=== PATIENT | male | born 1930 | race Caucasian/White ===

== ENCOUNTER 2016-03-15 08:20 | Outpatient (CLI) | payer MEDICARE, MEDICAID ==
[~2016-03-15 08:20] MED LIST: ASPI-605 PO; CEFT1VIA IJ; DEXL60CA3 PO; DOXA1TAB2 PO; LEVO137T24 PO; LEVO25TA7 PO; LINA145C PO; LORA10TA7 PO; NEBI10TA2 PO; OLME40TA3 PO; ROSU20TA PO; [UNRECOGNIZED DRUG - CODE] IV
== END 2016-03-15 23:59 | disposition home health service (06) ==
LOC: WOU 08:20
PROVIDERS: ATTEND Podiatrist Foot & Ankle Surgery
DX: I83.213 Varicose veins of right lower extremity with both ulcer of ankle and inflammation (principal); L97.313 Non-pressure chronic ulcer of right ankle with necrosis of muscle; I83.893 Varicose veins of bilateral lower extremities with other complications; Z87.891 Personal history of nicotine dependence; I10 Essential (primary) hypertension; I70.90 Unspecified atherosclerosis; Z79.82 Long term (current) use of aspirin; Z79.899 Other long term (current) drug therapy
CPT/HCPCS: 11043; A6207; A6402; A6452

== ENCOUNTER 2016-03-22 11:09 | Outpatient (CLI) | payer MEDICARE, MEDICAID | END 2016-03-22 23:59 | disposition home health service (06) | LOC: WOU 11:09 | PROVIDERS: ATTEND Podiatrist Foot & Ankle Surgery | DX: I83.213 Varicose veins of right lower extremity with both ulcer of ankle and inflammation (principal); L97.313 Non-pressure chronic ulcer of right ankle with necrosis of muscle; I83.893 Varicose veins of bilateral lower extremities with other complications; Z87.891 Personal history of nicotine dependence | CPT/HCPCS: 11043; A6207; A6402; A6452 ==

== ENCOUNTER 2016-03-29 11:40 | Outpatient (CLI) | payer MEDICARE, MEDICAID | END 2016-03-29 23:59 | disposition home health service (06) | LOC: WOU 11:40 | PROVIDERS: ATTEND Podiatrist Foot & Ankle Surgery | DX: I83.213 Varicose veins of right lower extremity with both ulcer of ankle and inflammation (principal); L97.312 Non-pressure chronic ulcer of right ankle with fat layer exposed; I83.893 Varicose veins of bilateral lower extremities with other complications; Z87.891 Personal history of nicotine dependence; I10 Essential (primary) hypertension; Z79.899 Other long term (current) drug therapy; Z79.82 Long term (current) use of aspirin; K21.9 Gastro-esophageal reflux disease without esophagitis; N40.0 Benign prostatic hyperplasia without lower urinary tract symptoms | CPT/HCPCS: 11043; A6207; A6402 ×2; A6452; 11042 ==

== ENCOUNTER 2016-04-05 08:29 | Outpatient (CLI) | payer MEDICARE, MEDICAID | END 2016-04-05 23:59 | disposition home health service (06) | LOC: WOU 08:29 | PROVIDERS: ATTEND Podiatrist Foot & Ankle Surgery | DX: I83.213 Varicose veins of right lower extremity with both ulcer of ankle and inflammation (principal); L97.312 Non-pressure chronic ulcer of right ankle with fat layer exposed; T86.821 Skin graft (allograft) (autograft) failure; I83.893 Varicose veins of bilateral lower extremities with other complications; Z87.891 Personal history of nicotine dependence; I10 Essential (primary) hypertension; Z79.899 Other long term (current) drug therapy; Z79.82 Long term (current) use of aspirin; K21.9 Gastro-esophageal reflux disease without esophagitis; N40.0 Benign prostatic hyperplasia without lower urinary tract symptoms | CPT/HCPCS: 11042; A6207; A6402; A6452 ==

== ENCOUNTER → 2016-04-12 | Outpatient (CLI) | payer MEDICARE, MEDICAID | END | disposition home health service (06) | LOC: WOU 08:40 | PROVIDERS: ATTEND Podiatrist Foot & Ankle Surgery | DX: I83.213 Varicose veins of right lower extremity with both ulcer of ankle and inflammation (principal); I96 Gangrene, not elsewhere classified; L97.311 Non-pressure chronic ulcer of right ankle limited to breakdown of skin; I83.893 Varicose veins of bilateral lower extremities with other complications; Z88.8 Allergy status to other drugs, medicaments and biological substances | CPT/HCPCS: 11042; A6207 ×2; A6402; A6452 ==

== ENCOUNTER 2016-04-19 08:30 | Outpatient (CLI) | payer MEDICARE, MEDICAID | END 2016-04-19 23:59 | disposition home health service (06) | LOC: WOU 08:30 | PROVIDERS: ATTEND Podiatrist Foot & Ankle Surgery | DX: I83.213 Varicose veins of right lower extremity with both ulcer of ankle and inflammation (principal); L97.313 Non-pressure chronic ulcer of right ankle with necrosis of muscle; Z87.891 Personal history of nicotine dependence; I83.893 Varicose veins of bilateral lower extremities with other complications; T86.821 Skin graft (allograft) (autograft) failure | CPT/HCPCS: 11043; A6207; A6402; A6452 ==

== ENCOUNTER 2016-04-26 08:30 | Outpatient (CLI) | payer MEDICARE, MEDICAID | END 2016-04-26 23:59 | disposition home health service (06) | LOC: WOU 08:30 | PROVIDERS: ATTEND Podiatrist Foot & Ankle Surgery | DX: I83.213 Varicose veins of right lower extremity with both ulcer of ankle and inflammation (principal); T86.821 Skin graft (allograft) (autograft) failure; L97.311 Non-pressure chronic ulcer of right ankle limited to breakdown of skin; I83.893 Varicose veins of bilateral lower extremities with other complications; Z87.891 Personal history of nicotine dependence; I10 Essential (primary) hypertension | CPT/HCPCS: 11042; A6207; A6402; A6452 ==

== ENCOUNTER 2016-05-03 08:40 | Outpatient (CLI) | payer MEDICARE, MEDICAID | END 2016-05-03 23:59 | disposition home health service (06) | DX: I83.213 Varicose veins of right lower extremity with both ulcer of ankle and inflammation (principal); L97.311 Non-pressure chronic ulcer of right ankle limited to breakdown of skin; T86.821 Skin graft (allograft) (autograft) failure; I83.893 Varicose veins of bilateral lower extremities with other complications; Z87.891 Personal history of nicotine dependence; I10 Essential (primary) hypertension | CPT/HCPCS: 11042; A6207; A6402; A6452 ==

== ENCOUNTER 2016-05-10 08:30 | Outpatient (CLI) | payer MEDICARE, MEDICAID | END 2016-05-10 23:59 | disposition home health service (06) | LOC: WOU 08:30 | PROVIDERS: ATTEND Podiatrist Foot & Ankle Surgery | DX: I83.213 Varicose veins of right lower extremity with both ulcer of ankle and inflammation (principal); L97.311 Non-pressure chronic ulcer of right ankle limited to breakdown of skin; I83.893 Varicose veins of bilateral lower extremities with other complications; T81.31XD Disruption of external operation (surgical) wound, not elsewhere classified, subsequent encounter | CPT/HCPCS: 11042; A6207; A6402; A6452 ==

== ENCOUNTER 2016-05-17 08:30 | Outpatient (CLI) | payer MEDICARE, MEDICAID | END 2016-05-17 23:59 | disposition home health service (06) | LOC: WOU 08:30 | PROVIDERS: ATTEND Podiatrist Foot & Ankle Surgery | DX: I83.213 Varicose veins of right lower extremity with both ulcer of ankle and inflammation (principal); L97.311 Non-pressure chronic ulcer of right ankle limited to breakdown of skin; T81.31XD Disruption of external operation (surgical) wound, not elsewhere classified, subsequent encounter; T86.821 Skin graft (allograft) (autograft) failure; Z87.891 Personal history of nicotine dependence; I10 Essential (primary) hypertension | CPT/HCPCS: 11042; A6207; A6402; A6452 ==

== ENCOUNTER 2016-05-24 12:00 | Outpatient (CLI) | payer MEDICARE, MEDICAID | END 2016-05-24 23:59 | disposition home or self-care (01) | LOC: WOU 12:00 | PROVIDERS: ATTEND Podiatrist Foot & Ankle Surgery | DX: I83.213 Varicose veins of right lower extremity with both ulcer of ankle and inflammation (principal); L97.311 Non-pressure chronic ulcer of right ankle limited to breakdown of skin; T81.31XD Disruption of external operation (surgical) wound, not elsewhere classified, subsequent encounter; T86.821 Skin graft (allograft) (autograft) failure; Z87.891 Personal history of nicotine dependence; I10 Essential (primary) hypertension; I83.893 Varicose veins of bilateral lower extremities with other complications; Z88.8 Allergy status to other drugs, medicaments and biological substances | CPT/HCPCS: 11042; A6207; A6402; A6452 ==

== ENCOUNTER 2016-05-31 11:55 | Outpatient (CLI) | payer MEDICARE, MEDICAID | END 2016-05-31 23:59 | disposition home or self-care (01) | LOC: WOU 11:55 | PROVIDERS: ATTEND Podiatrist Foot & Ankle Surgery | DX: I83.213 Varicose veins of right lower extremity with both ulcer of ankle and inflammation (principal); L97.311 Non-pressure chronic ulcer of right ankle limited to breakdown of skin; Z87.891 Personal history of nicotine dependence; I83.893 Varicose veins of bilateral lower extremities with other complications; T86.821 Skin graft (allograft) (autograft) failure | CPT/HCPCS: 11042; A6207; A6402; A6452 ==

== ENCOUNTER 2016-06-07 08:12 | Outpatient (CLI) | payer MEDICARE, MEDICAID | END 2016-06-07 23:59 | disposition home or self-care (01) | LOC: WOU 08:12 | PROVIDERS: ATTEND Podiatrist Foot & Ankle Surgery | DX: I83.213 Varicose veins of right lower extremity with both ulcer of ankle and inflammation (principal); T81.31XD Disruption of external operation (surgical) wound, not elsewhere classified, subsequent encounter; T86.821 Skin graft (allograft) (autograft) failure; L97.311 Non-pressure chronic ulcer of right ankle limited to breakdown of skin; Z87.891 Personal history of nicotine dependence; I10 Essential (primary) hypertension; I49.9 Cardiac arrhythmia, unspecified; Z79.899 Other long term (current) drug therapy | CPT/HCPCS: 11042; A6207; A6402; A6452 ==

== ENCOUNTER 2016-06-14 12:50 | Outpatient (CLI) | payer MEDICARE, MEDICAID | END 2016-06-14 23:59 | disposition home or self-care (01) | LOC: WOU 12:50 | PROVIDERS: ATTEND Podiatrist Foot & Ankle Surgery | DX: I83.213 Varicose veins of right lower extremity with both ulcer of ankle and inflammation (principal); L97.311 Non-pressure chronic ulcer of right ankle limited to breakdown of skin; I83.893 Varicose veins of bilateral lower extremities with other complications; T86.821 Skin graft (allograft) (autograft) failure; T81.31XD Disruption of external operation (surgical) wound, not elsewhere classified, subsequent encounter | CPT/HCPCS: 15271; A6402; A6452; Q4133; A6207 ==

== ENCOUNTER 2016-06-21 12:37 | Outpatient (CLI) | payer MEDICARE, MEDICAID | END 2016-06-21 23:59 | disposition home or self-care (01) | LOC: WOU 12:37 | PROVIDERS: ATTEND Podiatrist Foot & Ankle Surgery | DX: I83.213 Varicose veins of right lower extremity with both ulcer of ankle and inflammation (principal); L97.311 Non-pressure chronic ulcer of right ankle limited to breakdown of skin; I83.893 Varicose veins of bilateral lower extremities with other complications; T86.821 Skin graft (allograft) (autograft) failure; T81.31XD Disruption of external operation (surgical) wound, not elsewhere classified, subsequent encounter; Z87.891 Personal history of nicotine dependence; I10 Essential (primary) hypertension | CPT/HCPCS: 15271; A6402; A6452; Q4133 ==

== ENCOUNTER 2016-06-28 12:47 | Outpatient (CLI) | payer MEDICARE, MEDICAID | END 2016-06-28 23:59 | disposition home or self-care (01) | LOC: WOU 12:47 | PROVIDERS: ATTEND Podiatrist Foot & Ankle Surgery | DX: I83.213 Varicose veins of right lower extremity with both ulcer of ankle and inflammation (principal); L97.311 Non-pressure chronic ulcer of right ankle limited to breakdown of skin; I83.893 Varicose veins of bilateral lower extremities with other complications; Z87.891 Personal history of nicotine dependence; I10 Essential (primary) hypertension; T81.31XD Disruption of external operation (surgical) wound, not elsewhere classified, subsequent encounter; T86.821 Skin graft (allograft) (autograft) failure | CPT/HCPCS: 15271; A6402; A6452; Q4133 ==

== ENCOUNTER 2016-07-05 12:14 | Outpatient (CLI) | payer MEDICARE, MEDICAID | END 2016-07-05 23:59 | disposition home or self-care (01) | LOC: WOU 12:14 | PROVIDERS: ATTEND Podiatrist Foot & Ankle Surgery | DX: I83.213 Varicose veins of right lower extremity with both ulcer of ankle and inflammation (principal); L97.311 Non-pressure chronic ulcer of right ankle limited to breakdown of skin; T86.821 Skin graft (allograft) (autograft) failure; T81.31XD Disruption of external operation (surgical) wound, not elsewhere classified, subsequent encounter; I83.893 Varicose veins of bilateral lower extremities with other complications; Z87.891 Personal history of nicotine dependence; Z79.82 Long term (current) use of aspirin; Z79.899 Other long term (current) drug therapy; I10 Essential (primary) hypertension; K21.9 Gastro-esophageal reflux disease without esophagitis; I49.9 Cardiac arrhythmia, unspecified; Z88.8 Allergy status to other drugs, medicaments and biological substances | CPT/HCPCS: 15271; A6402; A6452; Q4133 ==

== ENCOUNTER 2016-07-12 12:25 | Outpatient (CLI) | payer MEDICARE, MEDICAID | END 2016-07-12 23:59 | disposition home or self-care (01) | LOC: WOU 12:25 | PROVIDERS: ATTEND Podiatrist Foot & Ankle Surgery | DX: T81.31XD Disruption of external operation (surgical) wound, not elsewhere classified, subsequent encounter (principal); I83.893 Varicose veins of bilateral lower extremities with other complications; I83.013 Varicose veins of right lower extremity with ulcer of ankle; L97.311 Non-pressure chronic ulcer of right ankle limited to breakdown of skin; T86.821 Skin graft (allograft) (autograft) failure; Z87.891 Personal history of nicotine dependence; I10 Essential (primary) hypertension | CPT/HCPCS: A6197; A6402; A6452; G0463 ==

== ENCOUNTER → 2016-07-19 | Outpatient (CLI) | payer MEDICARE, MEDICAID | END | disposition home or self-care (01) | LOC: WOU 09:00 | PROVIDERS: ATTEND Podiatrist Foot & Ankle Surgery | DX: I83.213 Varicose veins of right lower extremity with both ulcer of ankle and inflammation (principal); L97.311 Non-pressure chronic ulcer of right ankle limited to breakdown of skin; T86.821 Skin graft (allograft) (autograft) failure; T81.31XD Disruption of external operation (surgical) wound, not elsewhere classified, subsequent encounter; I83.92 Asymptomatic varicose veins of left lower extremity; Z87.891 Personal history of nicotine dependence; I10 Essential (primary) hypertension | CPT/HCPCS: 11042; A6197; A6402; A6452 ==

== ENCOUNTER 2016-07-26 12:14 | Outpatient (CLI) | payer MEDICARE, MEDICAID | END 2016-07-26 23:59 | disposition home or self-care (01) | LOC: WOU 12:14 | PROVIDERS: ATTEND Podiatrist Foot & Ankle Surgery | DX: I83.213 Varicose veins of right lower extremity with both ulcer of ankle and inflammation (principal); L97.311 Non-pressure chronic ulcer of right ankle limited to breakdown of skin; T81.31XD Disruption of external operation (surgical) wound, not elsewhere classified, subsequent encounter; T86.821 Skin graft (allograft) (autograft) failure; Z87.891 Personal history of nicotine dependence; I10 Essential (primary) hypertension; Z79.82 Long term (current) use of aspirin; Z79.899 Other long term (current) drug therapy; I70.90 Unspecified atherosclerosis | CPT/HCPCS: 11042; A6402; A6452 ==

== ENCOUNTER 2016-08-02 12:45 | Outpatient (CLI) | payer MEDICARE, MEDICAID | END 2016-08-02 23:59 | disposition home or self-care (01) | LOC: WOU 12:45 | PROVIDERS: ATTEND Podiatrist Foot & Ankle Surgery | DX: I87.331 Chronic venous hypertension (idiopathic) with ulcer and inflammation of right lower extremity (principal); L97.311 Non-pressure chronic ulcer of right ankle limited to breakdown of skin; T86.821 Skin graft (allograft) (autograft) failure; T81.31XD Disruption of external operation (surgical) wound, not elsewhere classified, subsequent encounter; Z87.891 Personal history of nicotine dependence; I10 Essential (primary) hypertension; I49.9 Cardiac arrhythmia, unspecified; Z79.899 Other long term (current) drug therapy | CPT/HCPCS: 11042; A6207; A6402; A6452 ==

== ENCOUNTER 2016-08-09 12:45 | Outpatient (CLI) | payer MEDICARE, MEDICAID | END 2016-08-09 23:59 | disposition home or self-care (01) | LOC: WOU 12:45 | PROVIDERS: ATTEND Surgery | DX: I83.213 Varicose veins of right lower extremity with both ulcer of ankle and inflammation (principal); L97.311 Non-pressure chronic ulcer of right ankle limited to breakdown of skin; T81.31XD Disruption of external operation (surgical) wound, not elsewhere classified, subsequent encounter; T86.821 Skin graft (allograft) (autograft) failure; N40.0 Benign prostatic hyperplasia without lower urinary tract symptoms; I25.10 Atherosclerotic heart disease of native coronary artery without angina pectoris; I10 Essential (primary) hypertension; I49.9 Cardiac arrhythmia, unspecified; Z79.82 Long term (current) use of aspirin; Z79.899 Other long term (current) drug therapy; Z87.891 Personal history of nicotine dependence | CPT/HCPCS: 11042; A6207; A6402; A6452 ==

== ENCOUNTER 2016-08-16 12:30 | Outpatient (CLI) | payer MEDICARE, MEDICAID | END 2016-08-16 23:59 | disposition home health service (06) | LOC: WOU 12:30 | PROVIDERS: ATTEND Podiatrist Foot & Ankle Surgery | DX: I83.213 Varicose veins of right lower extremity with both ulcer of ankle and inflammation (principal); L97.311 Non-pressure chronic ulcer of right ankle limited to breakdown of skin; T86.821 Skin graft (allograft) (autograft) failure; Z93.1 Gastrostomy status; I10 Essential (primary) hypertension; Z79.82 Long term (current) use of aspirin; Z79.899 Other long term (current) drug therapy; Z87.891 Personal history of nicotine dependence | CPT/HCPCS: 11042; A6207; A6402; A6452 ==

== ENCOUNTER 2016-08-23 12:15 | Outpatient (CLI) | payer MEDICARE, MEDICAID | END 2016-08-23 23:59 | disposition home health service (06) | LOC: WOU 12:15 | PROVIDERS: ATTEND Podiatrist Foot & Ankle Surgery | DX: T86.821 Skin graft (allograft) (autograft) failure (principal); I83.213 Varicose veins of right lower extremity with both ulcer of ankle and inflammation; L97.311 Non-pressure chronic ulcer of right ankle limited to breakdown of skin; Z87.891 Personal history of nicotine dependence | CPT/HCPCS: 11042; A6207; A6402; A6452 ==

== ENCOUNTER 2016-08-30 10:20 | Outpatient (CLI) | payer MEDICARE, MEDICAID | END 2016-08-30 23:59 | disposition home health service (06) | LOC: WOU 10:20 | PROVIDERS: ATTEND Podiatrist Foot & Ankle Surgery | DX: I83.213 Varicose veins of right lower extremity with both ulcer of ankle and inflammation (principal); L97.321 Non-pressure chronic ulcer of left ankle limited to breakdown of skin; T81.31XD Disruption of external operation (surgical) wound, not elsewhere classified, subsequent encounter; T86.821 Skin graft (allograft) (autograft) failure; Z87.891 Personal history of nicotine dependence; Z88.8 Allergy status to other drugs, medicaments and biological substances; Z79.82 Long term (current) use of aspirin; Z79.899 Other long term (current) drug therapy; I10 Essential (primary) hypertension | CPT/HCPCS: 11042; A6207; A6402; A6452; G0463 ==

== ENCOUNTER 2016-09-06 12:24 | Outpatient (CLI) | payer MEDICARE, MEDICAID | END 2016-09-06 23:59 | disposition home health service (06) | LOC: WOU 12:24 | PROVIDERS: ATTEND Podiatrist Foot & Ankle Surgery | DX: I83.213 Varicose veins of right lower extremity with both ulcer of ankle and inflammation (principal); L97.311 Non-pressure chronic ulcer of right ankle limited to breakdown of skin; Z87.891 Personal history of nicotine dependence; Z79.82 Long term (current) use of aspirin; Z79.899 Other long term (current) drug therapy; T81.31XD Disruption of external operation (surgical) wound, not elsewhere classified, subsequent encounter; T86.828 Other complications of skin graft (allograft) (autograft); I10 Essential (primary) hypertension | CPT/HCPCS: 11042; A6207; A6402; A6452 ==

== ENCOUNTER 2016-09-13 12:20 | Outpatient (CLI) | payer MEDICARE, MEDICAID | END 2016-09-13 23:59 | disposition home health service (06) | LOC: WOU 12:20 | PROVIDERS: ATTEND Surgery | DX: I87.331 Chronic venous hypertension (idiopathic) with ulcer and inflammation of right lower extremity (principal); L97.311 Non-pressure chronic ulcer of right ankle limited to breakdown of skin; L97.811 Non-pressure chronic ulcer of other part of right lower leg limited to breakdown of skin; I10 Essential (primary) hypertension; Z87.891 Personal history of nicotine dependence | CPT/HCPCS: 11042; A6207; A6402; A6452 ==

== ENCOUNTER 2016-09-20 12:25 | Outpatient (CLI) | payer MEDICARE, MEDICAID | END 2016-09-20 23:59 | disposition home health service (06) | LOC: WOU 12:25 | PROVIDERS: ATTEND Podiatrist Foot & Ankle Surgery | DX: T86.821 Skin graft (allograft) (autograft) failure (principal); I83.213 Varicose veins of right lower extremity with both ulcer of ankle and inflammation; L97.311 Non-pressure chronic ulcer of right ankle limited to breakdown of skin; L97.811 Non-pressure chronic ulcer of other part of right lower leg limited to breakdown of skin; I10 Essential (primary) hypertension; Z87.891 Personal history of nicotine dependence; T81.31XD Disruption of external operation (surgical) wound, not elsewhere classified, subsequent encounter | CPT/HCPCS: A6207; A6253; A6402; A6452; G0463 ==

== ENCOUNTER 2016-10-04 12:30 | Outpatient (CLI) | payer MEDICARE, MEDICAID | END 2016-10-04 23:59 | disposition home health service (06) | LOC: WOU 12:30 | PROVIDERS: ATTEND Podiatrist Foot & Ankle Surgery | DX: T81.31XD Disruption of external operation (surgical) wound, not elsewhere classified, subsequent encounter (principal); T86.821 Skin graft (allograft) (autograft) failure; I83.213 Varicose veins of right lower extremity with both ulcer of ankle and inflammation; L97.311 Non-pressure chronic ulcer of right ankle limited to breakdown of skin; I25.2 Old myocardial infarction; I10 Essential (primary) hypertension; Z79.899 Other long term (current) drug therapy | CPT/HCPCS: 11042; 15271; A6207; A6402; A6452 ==

== ENCOUNTER 2016-10-11 09:28 | Outpatient (CLI) | payer MEDICARE, MEDICAID | END 2016-10-11 23:59 | disposition home health service (06) | LOC: WOU 09:28 | PROVIDERS: ATTEND Podiatrist Foot & Ankle Surgery | DX: I83.213 Varicose veins of right lower extremity with both ulcer of ankle and inflammation (principal); L97.311 Non-pressure chronic ulcer of right ankle limited to breakdown of skin; L97.811 Non-pressure chronic ulcer of other part of right lower leg limited to breakdown of skin; M79.661 Pain in right lower leg; T81.31XD Disruption of external operation (surgical) wound, not elsewhere classified, subsequent encounter; T86.821 Skin graft (allograft) (autograft) failure; I87.2 Venous insufficiency (chronic) (peripheral); Z87.891 Personal history of nicotine dependence | CPT/HCPCS: A6207; A6402; A6452; G0463 ==

== ENCOUNTER 2016-10-18 12:30 | Outpatient (CLI) | payer MEDICARE, MEDICAID | END 2016-10-18 23:59 | disposition home health service (06) | LOC: WOU 12:30 | PROVIDERS: ATTEND Podiatrist Foot & Ankle Surgery | DX: L97.311 Non-pressure chronic ulcer of right ankle limited to breakdown of skin (principal); L97.811 Non-pressure chronic ulcer of other part of right lower leg limited to breakdown of skin; T86.821 Skin graft (allograft) (autograft) failure; Z87.891 Personal history of nicotine dependence; I10 Essential (primary) hypertension; Z79.899 Other long term (current) drug therapy | CPT/HCPCS: 11042; A6207; A6402; A6452 ==

== ENCOUNTER 2016-10-25 11:15 | Outpatient (CLI) | payer MEDICARE, MEDICAID | END 2016-10-25 23:59 | disposition home health service (06) | LOC: WOU 11:15 | PROVIDERS: ATTEND Podiatrist Foot & Ankle Surgery | DX: T86.821 Skin graft (allograft) (autograft) failure (principal); T81.31XD Disruption of external operation (surgical) wound, not elsewhere classified, subsequent encounter; I83.218 Varicose veins of right lower extremity with both ulcer of other part of lower extremity and inflammation; L97.811 Non-pressure chronic ulcer of other part of right lower leg limited to breakdown of skin; L97.311 Non-pressure chronic ulcer of right ankle limited to breakdown of skin; I83.811 Varicose veins of right lower extremity with pain; Z87.891 Personal history of nicotine dependence; Z79.82 Long term (current) use of aspirin; Z79.899 Other long term (current) drug therapy; I10 Essential (primary) hypertension | CPT/HCPCS: A6207; A6402; A6452; G0463 ==

== ENCOUNTER 2016-11-01 09:25 | Outpatient (CLI) | payer MEDICARE, MEDICAID | END 2016-11-01 23:59 | disposition home health service (06) | LOC: WOU 09:25 | PROVIDERS: ATTEND Podiatrist Foot & Ankle Surgery | DX: I83.213 Varicose veins of right lower extremity with both ulcer of ankle and inflammation (principal); L97.311 Non-pressure chronic ulcer of right ankle limited to breakdown of skin; I83.218 Varicose veins of right lower extremity with both ulcer of other part of lower extremity and inflammation; L97.811 Non-pressure chronic ulcer of other part of right lower leg limited to breakdown of skin; T81.31XD Disruption of external operation (surgical) wound, not elsewhere classified, subsequent encounter; T86.821 Skin graft (allograft) (autograft) failure; M79.661 Pain in right lower leg | CPT/HCPCS: 15002; 15110; A6402; A6452; A6207 ==

== ENCOUNTER 2016-11-08 09:53 | Outpatient (CLI) | payer MEDICARE, MEDICAID | END 2016-11-08 23:59 | disposition home health service (06) | LOC: WOU 09:53 | PROVIDERS: ATTEND Podiatrist Foot & Ankle Surgery | DX: I83.213 Varicose veins of right lower extremity with both ulcer of ankle and inflammation (principal); T81.31XD Disruption of external operation (surgical) wound, not elsewhere classified, subsequent encounter; T86.821 Skin graft (allograft) (autograft) failure; M79.661 Pain in right lower leg; L97.311 Non-pressure chronic ulcer of right ankle limited to breakdown of skin; Z87.891 Personal history of nicotine dependence | CPT/HCPCS: A6253; A6402; A6452; G0463 ==

== ENCOUNTER 2016-11-15 10:37 | Outpatient (CLI) | payer MEDICARE, MEDICAID | END 2016-11-15 23:59 | disposition home health service (06) | LOC: WOU 10:37 | PROVIDERS: ATTEND Podiatrist Foot & Ankle Surgery | DX: I83.213 Varicose veins of right lower extremity with both ulcer of ankle and inflammation (principal); L97.311 Non-pressure chronic ulcer of right ankle limited to breakdown of skin; T81.31XD Disruption of external operation (surgical) wound, not elsewhere classified, subsequent encounter; M79.661 Pain in right lower leg; Z87.891 Personal history of nicotine dependence; I10 Essential (primary) hypertension; Z79.899 Other long term (current) drug therapy; Z79.82 Long term (current) use of aspirin | CPT/HCPCS: A6402; A6452; G0463 ==

== ENCOUNTER 2016-11-22 12:20 | Outpatient (CLI) | payer MEDICARE, MEDICAID | END 2016-11-22 23:59 | disposition home health service (06) | LOC: WOU 12:20 | PROVIDERS: ATTEND Podiatrist Foot & Ankle Surgery | DX: I83.213 Varicose veins of right lower extremity with both ulcer of ankle and inflammation (principal); L97.321 Non-pressure chronic ulcer of left ankle limited to breakdown of skin; T86.821 Skin graft (allograft) (autograft) failure; T81.31XD Disruption of external operation (surgical) wound, not elsewhere classified, subsequent encounter; M79.661 Pain in right lower leg; Z87.891 Personal history of nicotine dependence; I10 Essential (primary) hypertension | CPT/HCPCS: 11042; A6253; A6402; A6452 ==

== ENCOUNTER 2016-12-06 12:45 | Outpatient (CLI) | payer MEDICARE, MEDICAID | END 2016-12-06 23:59 | disposition home health service (06) | LOC: WOU 12:45 | PROVIDERS: ATTEND Podiatrist Foot & Ankle Surgery | DX: I83.213 Varicose veins of right lower extremity with both ulcer of ankle and inflammation (principal); L97.311 Non-pressure chronic ulcer of right ankle limited to breakdown of skin; T86.821 Skin graft (allograft) (autograft) failure; I83.218 Varicose veins of right lower extremity with both ulcer of other part of lower extremity and inflammation; L97.811 Non-pressure chronic ulcer of other part of right lower leg limited to breakdown of skin; T81.31XD Disruption of external operation (surgical) wound, not elsewhere classified, subsequent encounter; I10 Essential (primary) hypertension; Z88.8 Allergy status to other drugs, medicaments and biological substances | CPT/HCPCS: 11042; A6253; A6402; A6452 ==

== ENCOUNTER 2016-12-13 12:10 | Outpatient (CLI) | payer MEDICARE, MEDICAID | END 2016-12-13 23:59 | disposition home health service (06) | LOC: WOU 12:10 | PROVIDERS: ATTEND Podiatrist Foot & Ankle Surgery | DX: I83.213 Varicose veins of right lower extremity with both ulcer of ankle and inflammation (principal); L97.311 Non-pressure chronic ulcer of right ankle limited to breakdown of skin; T86.821 Skin graft (allograft) (autograft) failure; I83.218 Varicose veins of right lower extremity with both ulcer of other part of lower extremity and inflammation; L97.811 Non-pressure chronic ulcer of other part of right lower leg limited to breakdown of skin; T81.31XD Disruption of external operation (surgical) wound, not elsewhere classified, subsequent encounter; I10 Essential (primary) hypertension | CPT/HCPCS: 11042; 15271; A6402; A6452; Q4132 ×2 ==

== ENCOUNTER 2016-12-20 09:30 | Outpatient (CLI) | payer MEDICARE, MEDICAID | END 2016-12-20 23:59 | disposition home health service (06) | LOC: WOU 09:30 | PROVIDERS: ATTEND Podiatrist Foot & Ankle Surgery | DX: T81.31XA Disruption of external operation (surgical) wound, not elsewhere classified, initial encounter (principal); I83.213 Varicose veins of right lower extremity with both ulcer of ankle and inflammation; L97.311 Non-pressure chronic ulcer of right ankle limited to breakdown of skin; I83.218 Varicose veins of right lower extremity with both ulcer of other part of lower extremity and inflammation; L97.811 Non-pressure chronic ulcer of other part of right lower leg limited to breakdown of skin; I10 Essential (primary) hypertension; T86.821 Skin graft (allograft) (autograft) failure; M79.661 Pain in right lower leg; Z87.891 Personal history of nicotine dependence | CPT/HCPCS: 15271; A6402; A6452; Q4132 ==

== ENCOUNTER 2016-12-27 09:15 | Outpatient (CLI) | payer MEDICARE, MEDICAID | END 2016-12-27 23:59 | disposition home health service (06) | LOC: WOU 09:15 | PROVIDERS: ATTEND Podiatrist Foot & Ankle Surgery | DX: I83.213 Varicose veins of right lower extremity with both ulcer of ankle and inflammation (principal); M79.661 Pain in right lower leg; L97.311 Non-pressure chronic ulcer of right ankle limited to breakdown of skin; L97.811 Non-pressure chronic ulcer of other part of right lower leg limited to breakdown of skin; T86.821 Skin graft (allograft) (autograft) failure; T81.31XD Disruption of external operation (surgical) wound, not elsewhere classified, subsequent encounter; Z87.891 Personal history of nicotine dependence | CPT/HCPCS: 11042; 15271; A6402; A6452; Q4133 ==

== ENCOUNTER 2017-01-03 12:10 | Outpatient (CLI) | payer MEDICARE, MEDICAID | END 2017-01-03 23:59 | disposition home health service (06) | LOC: WOU 12:10 | PROVIDERS: ATTEND Podiatrist Foot & Ankle Surgery | DX: I83.213 Varicose veins of right lower extremity with both ulcer of ankle and inflammation (principal); L97.311 Non-pressure chronic ulcer of right ankle limited to breakdown of skin; L97.811 Non-pressure chronic ulcer of other part of right lower leg limited to breakdown of skin; T86.821 Skin graft (allograft) (autograft) failure; T81.31XD Disruption of external operation (surgical) wound, not elsewhere classified, subsequent encounter; Z87.891 Personal history of nicotine dependence | CPT/HCPCS: 11042; A6402; A6452 ==

== ENCOUNTER 2017-01-10 09:26 | Outpatient (CLI) | payer MEDICARE, MEDICAID | END 2017-01-10 23:59 | disposition home health service (06) | LOC: WOU 09:26 | PROVIDERS: ATTEND Podiatrist Foot & Ankle Surgery | DX: I83.213 Varicose veins of right lower extremity with both ulcer of ankle and inflammation (principal); L97.311 Non-pressure chronic ulcer of right ankle limited to breakdown of skin; L97.811 Non-pressure chronic ulcer of other part of right lower leg limited to breakdown of skin; T86.821 Skin graft (allograft) (autograft) failure; T81.31XD Disruption of external operation (surgical) wound, not elsewhere classified, subsequent encounter | CPT/HCPCS: 11042; A6402; A6452 ==

== ENCOUNTER 2017-01-17 12:25 | Outpatient (CLI) | payer MEDICARE, MEDICAID | END 2017-01-17 23:59 | disposition home or self-care (01) | LOC: WOU 12:25 | PROVIDERS: ATTEND Podiatrist Foot & Ankle Surgery | DX: I83.213 Varicose veins of right lower extremity with both ulcer of ankle and inflammation (principal); L97.318 Non-pressure chronic ulcer of right ankle with other specified severity; I83.218 Varicose veins of right lower extremity with both ulcer of other part of lower extremity and inflammation; L97.811 Non-pressure chronic ulcer of other part of right lower leg limited to breakdown of skin; T86.821 Skin graft (allograft) (autograft) failure; T81.31XD Disruption of external operation (surgical) wound, not elsewhere classified, subsequent encounter; Z87.891 Personal history of nicotine dependence | CPT/HCPCS: 11042; A6402; A6452 ==

== ENCOUNTER 2017-01-28 09:25 | Outpatient (CLI) | payer MEDICARE, MEDICAID | END 2017-01-28 23:59 | disposition home health service (06) | LOC: WOU 09:25 | PROVIDERS: ATTEND Podiatrist Foot & Ankle Surgery | DX: I83.213 Varicose veins of right lower extremity with both ulcer of ankle and inflammation (principal); L97.312 Non-pressure chronic ulcer of right ankle with fat layer exposed; L97.812 Non-pressure chronic ulcer of other part of right lower leg with fat layer exposed; I83.018 Varicose veins of right lower extremity with ulcer other part of lower leg; T86.821 Skin graft (allograft) (autograft) failure; T81.31XD Disruption of external operation (surgical) wound, not elsewhere classified, subsequent encounter; Z87.891 Personal history of nicotine dependence; I10 Essential (primary) hypertension | CPT/HCPCS: 11042; A6402; A6452 ==

== ENCOUNTER 2017-02-07 12:30 | Outpatient (CLI) | payer MEDICARE, MEDICAID | END 2017-02-07 23:59 | disposition home health service (06) | LOC: WOU 12:30 | PROVIDERS: ATTEND Podiatrist Foot & Ankle Surgery | DX: L97.812 Non-pressure chronic ulcer of other part of right lower leg with fat layer exposed (principal); I83.213 Varicose veins of right lower extremity with both ulcer of ankle and inflammation; L97.312 Non-pressure chronic ulcer of right ankle with fat layer exposed; T81.31XD Disruption of external operation (surgical) wound, not elsewhere classified, subsequent encounter; Z87.891 Personal history of nicotine dependence; Z79.899 Other long term (current) drug therapy; Z79.82 Long term (current) use of aspirin; I10 Essential (primary) hypertension | CPT/HCPCS: 11042; A6402 ×2; A6452 ==

== ENCOUNTER 2017-02-14 09:40 | Outpatient (CLI) | payer MEDICARE, MEDICAID | END 2017-02-14 23:59 | disposition home health service (06) | LOC: WOU 09:40 | PROVIDERS: ATTEND Podiatrist Foot & Ankle Surgery | DX: I87.311 Chronic venous hypertension (idiopathic) with ulcer of right lower extremity (principal); I83.213 Varicose veins of right lower extremity with both ulcer of ankle and inflammation; L97.312 Non-pressure chronic ulcer of right ankle with fat layer exposed; I83.218 Varicose veins of right lower extremity with both ulcer of other part of lower extremity and inflammation; L97.812 Non-pressure chronic ulcer of other part of right lower leg with fat layer exposed; F17.211 Nicotine dependence, cigarettes, in remission; T81.31XD Disruption of external operation (surgical) wound, not elsewhere classified, subsequent encounter; T86.821 Skin graft (allograft) (autograft) failure; M79.661 Pain in right lower leg | CPT/HCPCS: 11042; A6402; A6452 ==

== ENCOUNTER 2017-02-21 09:20 | Outpatient (CLI) | payer MEDICARE, MEDICAID | END 2017-02-21 23:59 | disposition home health service (06) | LOC: WOU 09:20 | PROVIDERS: ATTEND Podiatrist Foot & Ankle Surgery | DX: I83.213 Varicose veins of right lower extremity with both ulcer of ankle and inflammation (principal); L97.312 Non-pressure chronic ulcer of right ankle with fat layer exposed; L97.812 Non-pressure chronic ulcer of other part of right lower leg with fat layer exposed; T86.821 Skin graft (allograft) (autograft) failure; T81.31XD Disruption of external operation (surgical) wound, not elsewhere classified, subsequent encounter; Z87.891 Personal history of nicotine dependence; I10 Essential (primary) hypertension; Z79.899 Other long term (current) drug therapy | CPT/HCPCS: 11042; A6402 ×2; A6452 ==

== ENCOUNTER 2017-02-28 12:25 | Outpatient (CLI) | payer MEDICARE, MEDICAID ==
[~2017-02-28 12:25] MED LIST changes: +OLME40TA12 PO; -OLME40TA3 PO
== END 2017-02-28 23:59 | disposition home health service (06) ==
LOC: WOU 12:25
PROVIDERS: ATTEND Podiatrist Foot & Ankle Surgery
DX: I83.213 Varicose veins of right lower extremity with both ulcer of ankle and inflammation (principal); L97.312 Non-pressure chronic ulcer of right ankle with fat layer exposed; L97.812 Non-pressure chronic ulcer of other part of right lower leg with fat layer exposed; I82.513 Chronic embolism and thrombosis of femoral vein, bilateral; Z79.82 Long term (current) use of aspirin; T81.31XD Disruption of external operation (surgical) wound, not elsewhere classified, subsequent encounter
CPT/HCPCS: 11042; 93925; 93970; A6402; A6452

== ENCOUNTER 2017-03-07 09:30 | Outpatient (CLI) | payer MEDICARE, MEDICAID | END 2017-03-07 23:59 | disposition home health service (06) | LOC: WOU 09:30 | PROVIDERS: ATTEND Podiatrist Foot & Ankle Surgery | DX: I83.213 Varicose veins of right lower extremity with both ulcer of ankle and inflammation (principal); L97.312 Non-pressure chronic ulcer of right ankle with fat layer exposed; L97.812 Non-pressure chronic ulcer of other part of right lower leg with fat layer exposed; I82.5Z3 Chronic embolism and thrombosis of unspecified deep veins of distal lower extremity, bilateral; F17.211 Nicotine dependence, cigarettes, in remission; I10 Essential (primary) hypertension; T86.821 Skin graft (allograft) (autograft) failure; T81.31XD Disruption of external operation (surgical) wound, not elsewhere classified, subsequent encounter | CPT/HCPCS: 11042; A6402; A6452 ==

== ENCOUNTER 2017-03-14 12:10 | Outpatient (CLI) | payer MEDICARE, MEDICAID | END 2017-03-14 23:59 | disposition home health service (06) | LOC: WOU 12:10 | PROVIDERS: ATTEND Podiatrist Foot & Ankle Surgery | DX: I83.213 Varicose veins of right lower extremity with both ulcer of ankle and inflammation (principal); L97.312 Non-pressure chronic ulcer of right ankle with fat layer exposed; L97.212 Non-pressure chronic ulcer of right calf with fat layer exposed; I83.811 Varicose veins of right lower extremity with pain; T86.821 Skin graft (allograft) (autograft) failure; T81.31XD Disruption of external operation (surgical) wound, not elsewhere classified, subsequent encounter; Z87.891 Personal history of nicotine dependence; I10 Essential (primary) hypertension; Z79.82 Long term (current) use of aspirin; Z79.899 Other long term (current) drug therapy | CPT/HCPCS: 11042; A6402; A6452 ==

== ENCOUNTER 2017-03-28 10:00 | Outpatient (CLI) | payer MEDICARE, MEDICAID | END 2017-03-28 23:59 | disposition home health service (06) | LOC: WOU 10:00 | PROVIDERS: ATTEND Podiatrist Foot & Ankle Surgery | DX: I83.213 Varicose veins of right lower extremity with both ulcer of ankle and inflammation (principal); L97.312 Non-pressure chronic ulcer of right ankle with fat layer exposed; L97.812 Non-pressure chronic ulcer of other part of right lower leg with fat layer exposed; Z87.891 Personal history of nicotine dependence; T86.821 Skin graft (allograft) (autograft) failure; M79.661 Pain in right lower leg; I70.203 Unspecified atherosclerosis of native arteries of extremities, bilateral legs | CPT/HCPCS: 11042; A6402; A6452 ==

== ENCOUNTER → 2017-04-04 | Outpatient (CLI) | payer MEDICARE, MEDICAID | END | disposition home health service (06) | LOC: WOU 12:39 | PROVIDERS: ATTEND Podiatrist Foot & Ankle Surgery | DX: I83.213 Varicose veins of right lower extremity with both ulcer of ankle and inflammation (principal); L97.318 Non-pressure chronic ulcer of right ankle with other specified severity; I83.218 Varicose veins of right lower extremity with both ulcer of other part of lower extremity and inflammation; L97.811 Non-pressure chronic ulcer of other part of right lower leg limited to breakdown of skin; T81.31XD Disruption of external operation (surgical) wound, not elsewhere classified, subsequent encounter; T86.821 Skin graft (allograft) (autograft) failure; I10 Essential (primary) hypertension; Z87.891 Personal history of nicotine dependence; Z79.899 Other long term (current) drug therapy | CPT/HCPCS: 11042; A6402; A6452 ==

== ENCOUNTER 2017-04-11 09:39 | Outpatient (CLI) | payer MEDICARE, MEDICAID | END 2017-04-11 23:59 | disposition home health service (06) | LOC: WOU 09:39 | PROVIDERS: ATTEND Podiatrist Foot & Ankle Surgery | DX: I83.213 Varicose veins of right lower extremity with both ulcer of ankle and inflammation (principal); L97.312 Non-pressure chronic ulcer of right ankle with fat layer exposed; I83.218 Varicose veins of right lower extremity with both ulcer of other part of lower extremity and inflammation; L97.812 Non-pressure chronic ulcer of other part of right lower leg with fat layer exposed; T86.821 Skin graft (allograft) (autograft) failure; T81.31XA Disruption of external operation (surgical) wound, not elsewhere classified, initial encounter | CPT/HCPCS: 11042; A6402; A6452 ==

== ENCOUNTER → 2017-04-18 | Outpatient (CLI) | payer MEDICARE, MEDICAID | END | disposition home health service (06) | LOC: WOU 09:27 | PROVIDERS: ATTEND Podiatrist Foot & Ankle Surgery | DX: I83.213 Varicose veins of right lower extremity with both ulcer of ankle and inflammation (principal); L97.312 Non-pressure chronic ulcer of right ankle with fat layer exposed; Z87.891 Personal history of nicotine dependence; T81.31XA Disruption of external operation (surgical) wound, not elsewhere classified, initial encounter; T86.821 Skin graft (allograft) (autograft) failure; M79.661 Pain in right lower leg | CPT/HCPCS: 11042; A6402; A6452 ==

== ENCOUNTER 2017-04-25 12:33 | Outpatient (CLI) | payer MEDICARE, MEDICAID | END 2017-04-25 23:59 | disposition home health service (06) | LOC: WOU 12:33 | PROVIDERS: ATTEND Podiatrist Foot & Ankle Surgery | DX: I83.213 Varicose veins of right lower extremity with both ulcer of ankle and inflammation (principal); L97.312 Non-pressure chronic ulcer of right ankle with fat layer exposed; I83.218 Varicose veins of right lower extremity with both ulcer of other part of lower extremity and inflammation; L97.812 Non-pressure chronic ulcer of other part of right lower leg with fat layer exposed; T86.821 Skin graft (allograft) (autograft) failure; T81.31XA Disruption of external operation (surgical) wound, not elsewhere classified, initial encounter | CPT/HCPCS: 11042; A6402; A6452 ==

== ENCOUNTER 2017-04-30 13:00 | Outpatient (CLI) | payer MEDICARE, MEDICAID | END 2017-04-30 23:59 | disposition home health service (06) | LOC: VASLAB 13:00 | PROVIDERS: ATTEND Surgery Vascular Surgery | DX: I87.2 Venous insufficiency (chronic) (peripheral) (principal); Z86.718 Personal history of other venous thrombosis and embolism; Z79.82 Long term (current) use of aspirin; L97.312 Non-pressure chronic ulcer of right ankle with fat layer exposed; I87.8 Other specified disorders of veins | CPT/HCPCS: A6402; A6452; G0463 ==

== ENCOUNTER 2017-05-02 09:15 | Outpatient (CLI) | payer MEDICARE, MEDICAID | END 2017-05-02 23:59 | disposition home or self-care (01) | LOC: WOU 09:15 | PROVIDERS: ATTEND Podiatrist Foot & Ankle Surgery | DX: I83.213 Varicose veins of right lower extremity with both ulcer of ankle and inflammation (principal); L97.312 Non-pressure chronic ulcer of right ankle with fat layer exposed; I83.018 Varicose veins of right lower extremity with ulcer other part of lower leg; L97.812 Non-pressure chronic ulcer of other part of right lower leg with fat layer exposed; T81.31XD Disruption of external operation (surgical) wound, not elsewhere classified, subsequent encounter; T86.821 Skin graft (allograft) (autograft) failure; I82.503 Chronic embolism and thrombosis of unspecified deep veins of lower extremity, bilateral; Z79.82 Long term (current) use of aspirin; Z79.899 Other long term (current) drug therapy | CPT/HCPCS: 11042; A6402; A6452 ==

== ENCOUNTER 2017-05-09 09:20 | Outpatient (CLI) | payer MEDICARE, MEDICAID | END 2017-05-09 23:59 | disposition home health service (06) | LOC: WOU 09:20 | PROVIDERS: ATTEND Podiatrist Foot & Ankle Surgery | DX: I83.213 Varicose veins of right lower extremity with both ulcer of ankle and inflammation (principal); L97.312 Non-pressure chronic ulcer of right ankle with fat layer exposed; I83.218 Varicose veins of right lower extremity with both ulcer of other part of lower extremity and inflammation; L97.812 Non-pressure chronic ulcer of other part of right lower leg with fat layer exposed; T81.31XD Disruption of external operation (surgical) wound, not elsewhere classified, subsequent encounter; T86.821 Skin graft (allograft) (autograft) failure; M79.661 Pain in right lower leg; Z87.891 Personal history of nicotine dependence; Z79.82 Long term (current) use of aspirin; Z79.899 Other long term (current) drug therapy | CPT/HCPCS: 11042; A6402; A6452 ==

== ENCOUNTER 2017-05-16 08:20 | Outpatient (CLI) | payer MEDICARE, MEDICAID | END 2017-05-16 23:59 | disposition home health service (06) | LOC: WOU 08:20 | PROVIDERS: ATTEND Podiatrist Foot & Ankle Surgery | DX: I83.013 Varicose veins of right lower extremity with ulcer of ankle (principal); L97.312 Non-pressure chronic ulcer of right ankle with fat layer exposed; L97.812 Non-pressure chronic ulcer of other part of right lower leg with fat layer exposed; I82.503 Chronic embolism and thrombosis of unspecified deep veins of lower extremity, bilateral; I10 Essential (primary) hypertension; Z87.891 Personal history of nicotine dependence; Z79.82 Long term (current) use of aspirin; Z79.899 Other long term (current) drug therapy; T81.31XA Disruption of external operation (surgical) wound, not elsewhere classified, initial encounter; T86.821 Skin graft (allograft) (autograft) failure; I83.018 Varicose veins of right lower extremity with ulcer other part of lower leg | CPT/HCPCS: 11042; 15271; A6402; A6452 ==

== ENCOUNTER 2017-05-23 08:00 | Outpatient (CLI) | payer MEDICARE, MEDICAID | END 2017-05-23 23:59 | disposition home health service (06) | LOC: WOU 08:00 | PROVIDERS: ATTEND Podiatrist Foot & Ankle Surgery | DX: I83.013 Varicose veins of right lower extremity with ulcer of ankle (principal); L97.312 Non-pressure chronic ulcer of right ankle with fat layer exposed; L97.812 Non-pressure chronic ulcer of other part of right lower leg with fat layer exposed; T81.31XD Disruption of external operation (surgical) wound, not elsewhere classified, subsequent encounter; T86.821 Skin graft (allograft) (autograft) failure; M79.661 Pain in right lower leg; I83.018 Varicose veins of right lower extremity with ulcer other part of lower leg | CPT/HCPCS: 11042; 15271; A6402; A6452 ==

== ENCOUNTER 2017-05-30 08:30 | Outpatient (CLI) | payer MEDICARE, MEDICAID | END 2017-05-30 23:59 | disposition home or self-care (01) | LOC: WOU 08:30 | PROVIDERS: ATTEND Podiatrist Foot & Ankle Surgery | DX: I83.013 Varicose veins of right lower extremity with ulcer of ankle (principal); L97.312 Non-pressure chronic ulcer of right ankle with fat layer exposed; I83.018 Varicose veins of right lower extremity with ulcer other part of lower leg; L97.812 Non-pressure chronic ulcer of other part of right lower leg with fat layer exposed; Z87.891 Personal history of nicotine dependence; I10 Essential (primary) hypertension; Z79.82 Long term (current) use of aspirin; Z79.899 Other long term (current) drug therapy | CPT/HCPCS: 11042; 15271; A6402; A6452; Q4172 ==

== ENCOUNTER 2017-06-06 08:07 | Outpatient (CLI) | payer MEDICARE, MEDICAID | END 2017-06-06 23:59 | disposition home health service (06) | LOC: WOU 08:07 | PROVIDERS: ATTEND Podiatrist Foot & Ankle Surgery | DX: I83.213 Varicose veins of right lower extremity with both ulcer of ankle and inflammation (principal); I70.293 Other atherosclerosis of native arteries of extremities, bilateral legs; I82.503 Chronic embolism and thrombosis of unspecified deep veins of lower extremity, bilateral; T86.821 Skin graft (allograft) (autograft) failure; L97.312 Non-pressure chronic ulcer of right ankle with fat layer exposed; L97.812 Non-pressure chronic ulcer of other part of right lower leg with fat layer exposed; I87.2 Venous insufficiency (chronic) (peripheral); T81.31XD Disruption of external operation (surgical) wound, not elsewhere classified, subsequent encounter; Z79.82 Long term (current) use of aspirin; Z87.891 Personal history of nicotine dependence | CPT/HCPCS: 11042; 15271; A6402; A6452 ==

== ENCOUNTER 2017-06-13 08:58 | Outpatient (CLI) | payer MEDICARE, MEDICAID | END 2017-06-13 23:59 | disposition home health service (06) | LOC: WOU 08:58 | PROVIDERS: ATTEND Podiatrist Foot & Ankle Surgery | DX: I83.013 Varicose veins of right lower extremity with ulcer of ankle (principal); L97.312 Non-pressure chronic ulcer of right ankle with fat layer exposed; I83.018 Varicose veins of right lower extremity with ulcer other part of lower leg; L97.812 Non-pressure chronic ulcer of other part of right lower leg with fat layer exposed; T86.821 Skin graft (allograft) (autograft) failure; T81.31XD Disruption of external operation (surgical) wound, not elsewhere classified, subsequent encounter; Z87.891 Personal history of nicotine dependence; I10 Essential (primary) hypertension; I82.503 Chronic embolism and thrombosis of unspecified deep veins of lower extremity, bilateral; Z79.82 Long term (current) use of aspirin | CPT/HCPCS: 11042; 15271; A6253; A6402; A6452; Q4172 ==

== ENCOUNTER 2017-06-19 09:15 | Outpatient (CLI) | payer MEDICARE, MEDICAID | END 2017-06-19 23:59 | disposition home health service (06) | LOC: WOU 09:15 | PROVIDERS: ATTEND Podiatrist Foot & Ankle Surgery | DX: I83.213 Varicose veins of right lower extremity with both ulcer of ankle and inflammation (principal); L97.312 Non-pressure chronic ulcer of right ankle with fat layer exposed; L97.812 Non-pressure chronic ulcer of other part of right lower leg with fat layer exposed; Z87.891 Personal history of nicotine dependence; T81.31XD Disruption of external operation (surgical) wound, not elsewhere classified, subsequent encounter; T86.821 Skin graft (allograft) (autograft) failure; Z79.899 Other long term (current) drug therapy; Z79.82 Long term (current) use of aspirin | CPT/HCPCS: 11042; 15271; A6402; A6452 ==

== ENCOUNTER 2017-06-27 08:15 | Outpatient (CLI) | payer MEDICARE, MEDICAID | END 2017-06-27 23:59 | disposition home health service (06) | LOC: WOU 08:15 | PROVIDERS: ATTEND Podiatrist Foot & Ankle Surgery | DX: I83.213 Varicose veins of right lower extremity with both ulcer of ankle and inflammation (principal); L97.312 Non-pressure chronic ulcer of right ankle with fat layer exposed; L97.812 Non-pressure chronic ulcer of other part of right lower leg with fat layer exposed; Z87.891 Personal history of nicotine dependence; I70.203 Unspecified atherosclerosis of native arteries of extremities, bilateral legs; T86.821 Skin graft (allograft) (autograft) failure; T81.31XD Disruption of external operation (surgical) wound, not elsewhere classified, subsequent encounter | CPT/HCPCS: 11042; 15271; A6402; A6452 ==

== ENCOUNTER 2017-07-04 08:10 | Outpatient (CLI) | payer MEDICARE, MEDICAID | END 2017-07-04 23:59 | disposition home health service (06) | LOC: WOU 08:10 | PROVIDERS: ATTEND Podiatrist Foot & Ankle Surgery | DX: I87.311 Chronic venous hypertension (idiopathic) with ulcer of right lower extremity (principal); L97.812 Non-pressure chronic ulcer of other part of right lower leg with fat layer exposed; L97.312 Non-pressure chronic ulcer of right ankle with fat layer exposed; T86.821 Skin graft (allograft) (autograft) failure; T81.31XD Disruption of external operation (surgical) wound, not elsewhere classified, subsequent encounter; I10 Essential (primary) hypertension; Z87.891 Personal history of nicotine dependence; Z88.8 Allergy status to other drugs, medicaments and biological substances; Z91.09 Other allergy status, other than to drugs and biological substances | CPT/HCPCS: 11042; 15271; A6402; A6452; J7040 ==

== ENCOUNTER 2017-07-11 08:05 | Outpatient (CLI) | payer MEDICARE, MEDICAID | END 2017-07-11 23:59 | disposition home health service (06) | LOC: WOU 08:05 | PROVIDERS: ATTEND Podiatrist Foot & Ankle Surgery | DX: I87.311 Chronic venous hypertension (idiopathic) with ulcer of right lower extremity (principal); L97.812 Non-pressure chronic ulcer of other part of right lower leg with fat layer exposed; L97.312 Non-pressure chronic ulcer of right ankle with fat layer exposed; M79.661 Pain in right lower leg; I10 Essential (primary) hypertension; Z87.891 Personal history of nicotine dependence; Z88.8 Allergy status to other drugs, medicaments and biological substances; Z91.09 Other allergy status, other than to drugs and biological substances | CPT/HCPCS: 11042; 15271; A6402; A6452 ==

== ENCOUNTER 2017-07-18 08:30 | Outpatient (CLI) | payer MEDICARE, MEDICAID | END 2017-07-18 23:59 | disposition home health service (06) | LOC: WOU 08:30 | PROVIDERS: ATTEND Podiatrist Foot & Ankle Surgery | DX: I87.311 Chronic venous hypertension (idiopathic) with ulcer of right lower extremity (principal); L97.812 Non-pressure chronic ulcer of other part of right lower leg with fat layer exposed; L97.312 Non-pressure chronic ulcer of right ankle with fat layer exposed; T86.821 Skin graft (allograft) (autograft) failure; I10 Essential (primary) hypertension; Z87.891 Personal history of nicotine dependence; Z88.8 Allergy status to other drugs, medicaments and biological substances; Z91.09 Other allergy status, other than to drugs and biological substances | CPT/HCPCS: 11042; A6402; A6452 ==

== ENCOUNTER 2017-07-25 08:00 | Outpatient (CLI) | payer MEDICARE, MEDICAID | END 2017-07-25 23:59 | disposition home health service (06) | LOC: WOU 08:00 | PROVIDERS: ATTEND Podiatrist Foot & Ankle Surgery | DX: I83.213 Varicose veins of right lower extremity with both ulcer of ankle and inflammation (principal); L97.312 Non-pressure chronic ulcer of right ankle with fat layer exposed; L97.812 Non-pressure chronic ulcer of other part of right lower leg with fat layer exposed; T81.31XD Disruption of external operation (surgical) wound, not elsewhere classified, subsequent encounter; T86.821 Skin graft (allograft) (autograft) failure; M79.661 Pain in right lower leg; I10 Essential (primary) hypertension; Z87.891 Personal history of nicotine dependence | CPT/HCPCS: 11042; A6402; A6452 ==

== ENCOUNTER 2017-08-01 08:15 | Outpatient (CLI) | payer MEDICARE, MEDICAID | END 2017-08-01 23:59 | disposition home health service (06) | LOC: WOU 08:15 | PROVIDERS: ATTEND Podiatrist Foot & Ankle Surgery | DX: I83.213 Varicose veins of right lower extremity with both ulcer of ankle and inflammation (principal); L97.312 Non-pressure chronic ulcer of right ankle with fat layer exposed; L97.812 Non-pressure chronic ulcer of other part of right lower leg with fat layer exposed; Z87.891 Personal history of nicotine dependence; T86.821 Skin graft (allograft) (autograft) failure; M79.661 Pain in right lower leg; T81.31XD Disruption of external operation (surgical) wound, not elsewhere classified, subsequent encounter | CPT/HCPCS: 11042; A6402; A6452 ==

== ENCOUNTER 2017-08-08 08:10 | Outpatient (CLI) | payer MEDICARE, MEDICAID | END 2017-08-08 23:59 | disposition home health service (06) | LOC: WOU 08:10 | PROVIDERS: ATTEND Podiatrist Foot & Ankle Surgery | DX: I83.213 Varicose veins of right lower extremity with both ulcer of ankle and inflammation (principal); L97.312 Non-pressure chronic ulcer of right ankle with fat layer exposed; L97.812 Non-pressure chronic ulcer of other part of right lower leg with fat layer exposed; T81.31XD Disruption of external operation (surgical) wound, not elsewhere classified, subsequent encounter; T86.821 Skin graft (allograft) (autograft) failure; Z87.891 Personal history of nicotine dependence; I10 Essential (primary) hypertension; Z79.82 Long term (current) use of aspirin; Z79.899 Other long term (current) drug therapy; K21.9 Gastro-esophageal reflux disease without esophagitis | CPT/HCPCS: 11042; A6402; A6452 ==

== ENCOUNTER 2017-08-15 08:10 | Outpatient (CLI) | payer MEDICARE, MEDICAID | END 2017-08-15 23:59 | disposition home health service (06) | LOC: WOU 08:10 | PROVIDERS: ATTEND Podiatrist Foot & Ankle Surgery | DX: I83.213 Varicose veins of right lower extremity with both ulcer of ankle and inflammation (principal); L97.312 Non-pressure chronic ulcer of right ankle with fat layer exposed; L97.812 Non-pressure chronic ulcer of other part of right lower leg with fat layer exposed; T81.31XD Disruption of external operation (surgical) wound, not elsewhere classified, subsequent encounter; Z87.891 Personal history of nicotine dependence; I10 Essential (primary) hypertension | CPT/HCPCS: 11042; A6402; A6452 ==

== ENCOUNTER 2017-08-22 08:00 | Outpatient (CLI) | payer MEDICARE, MEDICAID | END 2017-08-22 23:59 | disposition home health service (06) | LOC: WOU 08:00 | PROVIDERS: ATTEND Podiatrist Foot & Ankle Surgery | DX: I83.218 Varicose veins of right lower extremity with both ulcer of other part of lower extremity and inflammation (principal); L97.812 Non-pressure chronic ulcer of other part of right lower leg with fat layer exposed; T86.821 Skin graft (allograft) (autograft) failure; T81.31XD Disruption of external operation (surgical) wound, not elsewhere classified, subsequent encounter; Z87.891 Personal history of nicotine dependence; I83.811 Varicose veins of right lower extremity with pain; N40.0 Benign prostatic hyperplasia without lower urinary tract symptoms; I10 Essential (primary) hypertension; I82.503 Chronic embolism and thrombosis of unspecified deep veins of lower extremity, bilateral; Z79.82 Long term (current) use of aspirin; Z79.899 Other long term (current) drug therapy | CPT/HCPCS: 11042; A6402; A6452 ==

== ENCOUNTER 2017-08-29 08:00 | Outpatient (CLI) | payer MEDICARE, MEDICAID | END 2017-08-29 23:59 | disposition home health service (06) | LOC: WOU 08:00 | PROVIDERS: ATTEND Podiatrist Foot & Ankle Surgery | DX: I83.018 Varicose veins of right lower extremity with ulcer other part of lower leg (principal); L97.812 Non-pressure chronic ulcer of other part of right lower leg with fat layer exposed; T81.31XD Disruption of external operation (surgical) wound, not elsewhere classified, subsequent encounter; T86.821 Skin graft (allograft) (autograft) failure; Z87.891 Personal history of nicotine dependence; I10 Essential (primary) hypertension | CPT/HCPCS: 11042; A6402; A6452; Z7610 ==

== ENCOUNTER 2017-09-05 08:00 | Outpatient (CLI) | payer MEDICARE, MEDICAID | END 2017-09-05 23:59 | disposition home health service (06) | LOC: WOU 08:00 | PROVIDERS: ATTEND Podiatrist Foot & Ankle Surgery | DX: I83.213 Varicose veins of right lower extremity with both ulcer of ankle and inflammation (principal); L97.812 Non-pressure chronic ulcer of other part of right lower leg with fat layer exposed; T81.31XD Disruption of external operation (surgical) wound, not elsewhere classified, subsequent encounter; T86.821 Skin graft (allograft) (autograft) failure; I83.811 Varicose veins of right lower extremity with pain; I10 Essential (primary) hypertension; Z87.891 Personal history of nicotine dependence; I82.509 Chronic embolism and thrombosis of unspecified deep veins of unspecified lower extremity; Z79.82 Long term (current) use of aspirin | CPT/HCPCS: 11042; A6402; A6452; Z7610 ==

== ENCOUNTER → 2017-09-12 | Outpatient (CLI) | payer MEDICARE, MEDICAID | END | disposition home health service (06) | LOC: WOU 08:04 | PROVIDERS: ATTEND Podiatrist Foot & Ankle Surgery | DX: I83.213 Varicose veins of right lower extremity with both ulcer of ankle and inflammation (principal); L97.812 Non-pressure chronic ulcer of other part of right lower leg with fat layer exposed; I10 Essential (primary) hypertension; Z87.891 Personal history of nicotine dependence; Z79.82 Long term (current) use of aspirin; Z79.899 Other long term (current) drug therapy; T81.31XD Disruption of external operation (surgical) wound, not elsewhere classified, subsequent encounter; T86.821 Skin graft (allograft) (autograft) failure; M79.661 Pain in right lower leg | CPT/HCPCS: 11042; A6402; A6452; Z7610 ==

== ENCOUNTER 2017-09-26 09:58 | Outpatient (CLI) | payer MEDICARE, MEDICAID | END 2017-09-26 23:59 | disposition home health service (06) | LOC: WOU 09:58 | PROVIDERS: ATTEND Podiatrist Foot & Ankle Surgery | DX: I83.213 Varicose veins of right lower extremity with both ulcer of ankle and inflammation (principal); L97.312 Non-pressure chronic ulcer of right ankle with fat layer exposed; T86.821 Skin graft (allograft) (autograft) failure; T81.31XD Disruption of external operation (surgical) wound, not elsewhere classified, subsequent encounter; I82.503 Chronic embolism and thrombosis of unspecified deep veins of lower extremity, bilateral; Z79.82 Long term (current) use of aspirin; Z87.891 Personal history of nicotine dependence; I10 Essential (primary) hypertension | CPT/HCPCS: 11042; A6402; A6452; Z7610 ==

== ENCOUNTER 2017-10-03 09:48 | Outpatient (CLI) | payer MEDICARE, MEDICAID | END 2017-10-03 23:59 | disposition home health service (06) | LOC: WOU 09:48 | PROVIDERS: ATTEND Podiatrist Foot & Ankle Surgery | DX: I83.213 Varicose veins of right lower extremity with both ulcer of ankle and inflammation (principal); L97.312 Non-pressure chronic ulcer of right ankle with fat layer exposed; T86.821 Skin graft (allograft) (autograft) failure; T81.31XD Disruption of external operation (surgical) wound, not elsewhere classified, subsequent encounter; Z87.891 Personal history of nicotine dependence; I82.503 Chronic embolism and thrombosis of unspecified deep veins of lower extremity, bilateral; I10 Essential (primary) hypertension; Z79.82 Long term (current) use of aspirin; Z79.899 Other long term (current) drug therapy | CPT/HCPCS: 11042; A6402; A6452; Z7610 ==

== ENCOUNTER 2017-10-10 05:19 | Inpatient (IN) | payer MEDICARE, MEDICAID ==
[~2017-10-10] VITALS: Ht 175.3 cm; Wt 95.3 kg
--- NOTE | 2017-10-10 05:45 | NUR ---
MS RN NOTES RECEIVED PT FOR DAY SURGERY, PT IS AMBULATORY, A/O X 4, VERBALLY RESPONSIVE. NO DISTRESS, NO SOB NOTED. RESPIRATION IS EVEN AND UNLABORED. NO C/O PAIN OR DISCOMFORT AT THIS TIME. INSERTED IV ON RAC G # 20 X 1 ATTEMPT, WITH GOOD VENOUS RETURN, PT GAMA WELL. PT HERE FOR RLA SURGERY BY DR. JUNG. RLE WITH INTACT AND CLEAN DRESSING, PT REFUSED DRESSING TO BE REMOVED FOR PICTURE X 3, RISK AND BENEFITS EXPLAINED, KWAME RN AT BEDSIDE. ALL NEEDS ATTENDED AND MET. KEPT COMFORTABLE. CALL LIGHT WITHIN REACH. WILL ENDORSE TO NEXT SHIFT ACCORDINGLY FOR DOMINIQUE.
[2017-10-10 06:39] VITALS: BP 138/72
[2017-10-10 06:41] VITALS: BP 138/72
[2017-10-10] MEDS ORDERED: LIDOCAINE HCL/PF 1% 30 ML SDV ONE (06:50)
[2017-10-10] MEDS ORDERED: ANESTHESIA TRAY IN PYXIS 1 EA TRAY MC ONE (06:50)
[2017-10-10] MEDS ORDERED: BUPIVACAINE MPF 0.75% 30 ML VIAL ONE (06:51)
[2017-10-10] MEDS ORDERED: MINERAL OIL 10 ML VIAL MC ONE (07:05)
--- NOTE | 2017-10-10 07:17 | NUR ---
MS RN OPENING NOTES RECEIVED PATIENT IN BED IN NO ACUTE SIGNS OF DISTRESS. A/O X 4, VERBALLY RESPONSIVE, NO C/O PAIN OR DISCOMFORTS VOICED. ON ROOM AIR, RESPIRATION IS EVEN AND UNLABORED. IV ACCESS ON RAC G # 20 INTACT AND PATENT, FLUSHES WELL. RLE DRESSINGS INTACT AND CLEAN. PATIENT JUST LEFT VIA HIS BED FOR RLA SURGERY BY DR. JUNG TRANSPORTED BY SURGERY STAFF.
[2017-10-10] MEDS ORDERED: LIDOCAINE 1%-EPI 1:100,000 20 ML VIAL ONE (07:30)
[2017-10-10 09:18] VITALS: BP 155/73
[2017-10-10 09:20] VITALS: BP 155/73
--- NOTE | 2017-10-10 09:24 | NUR ---
RN NOTES S/P SURGERY PATIENT RETURN FROM SURGERY AWAKE, ALERT AND RESPONSIVE S/P RLE SPLIT THICKNESS SKIN GRAFT WITH WOUND VAC APPLICATION BY DR. JUNG. PT WITH NO C/O PAIN VOICED AT THIS TIME. DRESSING ON RLE CLEAN, DRY AND INTACT WITH WOUND VAC AT 125MMHG CONTINUOUS, NO DRAINAGE NOTED AT THE COLLECTING CANISTER. ON ROOM AIR, BREATHING EVEN WITH SP02 OF 97%. V/S TAKEN; BP 155/73. P 70, R 18, T 97.7F. SAFETY MEASURES KEPT IN PLACE. BED IN LOW/LOCKED POSITION WITH SR UP X2. CALL LIGHT WITHIN REACH. DR JUNG WITH ORDER TO DISCHARGE PT HOME WHEN STABLE PER PROTOCOL. WILL CONTINUE TO MONITOR.
--- NOTE | 2017-10-10 09:27 | NUR ---
RN NOTES SWABBED RIGHT NARE FOR MRSA TEST.
[2017-10-10] MEDS ORDERED: HYDROCODONE/APAP 5/325MG 1 EACH TABLET PO PRN (09:30)
[2017-10-10 09:35] VITALS: BP 150/74
--- NOTE | 2017-10-10 10:03 | NUR ---
RN NOTES CALLED AND SPOKE TO DALLIN HALL AND SAID THAT IF DR LORD ORDER PT TO BE DISCHARGED THEN IT'S OK TO DISCHARGE PT WHEN STABLE.
--- NOTE | 2017-10-10 11:36 | NUR ---
RN DISCHARGED NOTES PATIENT DISCHARGED HOME IN STABLE CONDITION. A/O X4, SAME VERBALLY RESPONSIVE WITH NO C/O PAIN OR DISCOMFORTS VOICED. PT S/P SPLIT THICKNESS SKIN GRAFT WITH WOUND VAC APPLICATION THIS MORNING BY DR JUNG. PT WITH STABLE V/S AND AMBULATORY. DRESSING TO RLE C/D /I WITH WOUND VAC @ 125MMHG IN PLACE AND FUNCTIONING, NO DRAINAGE NOTED TO COLLECTING CANISTER. PT VERBALIZED THAT HE KNOWS HOW TO OPERATE WOUND VAC HE HAD IT BEFORE. V/S TAKEN AND RECORDED. ALL BELONGINGS ACCOUNTED FOR AND SIGNED FORM. EXIT CARE/HEALTH TEACHINGS GIVEN AND VERBALIZED UNDERSTANDING. PATIENT LEFT UNIT VIA WHEELCHAIR AT 1130 ACCOMPANIED BY RIA ORELLANA TO WAITING MEDICAL TAXI IN FRONT OF THE LOBBY. ONE BIG BOX OF WOUND VAC SUPPLIES GIVEN TO PT. DR JUNG AND DALLIN HALL AWARE OF DISCHARGE.
== END 2017-10-10 11:30 | disposition home or self-care (01) | DRG 264 ==
LOC: DS 05:19 → MEDSG2 05:52
PROVIDERS: ADMIT Podiatrist Foot & Ankle Surgery; ATTEND Podiatrist Foot & Ankle Surgery
PROC: 0HBHXZZ Excision of Right Upper Leg Skin, External Approach (ICD-10-PCS; 2017-10-10)
PROC: 0HRKX74 Replacement of Right Lower Leg Skin with Autologous Tissue Substitute, Partial Thickness, External Approach (ICD-10-PCS; principal; 2017-10-10 07:30)
DX: I87.2 Venous insufficiency (chronic) (peripheral) (principal)
CPT/HCPCS: 82962-TC; 87081-TC; J3490; Z7610

== ENCOUNTER 2017-10-17 08:00 | Outpatient (CLI) | payer MEDICARE, MEDICAID | END 2017-10-17 23:59 | disposition home health service (06) | LOC: WOU 08:00 | PROVIDERS: ATTEND Podiatrist Foot & Ankle Surgery | DX: T86.821 Skin graft (allograft) (autograft) failure (principal); I83.213 Varicose veins of right lower extremity with both ulcer of ankle and inflammation; L97.318 Non-pressure chronic ulcer of right ankle with other specified severity; M79.661 Pain in right lower leg; Z87.891 Personal history of nicotine dependence; I82.503 Chronic embolism and thrombosis of unspecified deep veins of lower extremity, bilateral; I10 Essential (primary) hypertension; Z79.82 Long term (current) use of aspirin; Z79.899 Other long term (current) drug therapy | CPT/HCPCS: A6402 ×2; A6452; G0463; Z7610 ==

== ENCOUNTER 2017-10-21 09:30 | Outpatient (CLI) | payer MEDICARE, MEDICAID | END 2017-10-21 23:59 | disposition home health service (06) | LOC: WOU 09:30 | PROVIDERS: ATTEND Podiatrist Foot & Ankle Surgery | DX: T81.89XD Other complications of procedures, not elsewhere classified, subsequent encounter (principal); I87.2 Venous insufficiency (chronic) (peripheral); M79.661 Pain in right lower leg; I10 Essential (primary) hypertension; Z87.891 Personal history of nicotine dependence; Z79.82 Long term (current) use of aspirin; Z79.899 Other long term (current) drug therapy | CPT/HCPCS: A6253; A6402 ×2; A6452; G0463; Z7610 ==

== ENCOUNTER 2017-10-24 09:35 | Outpatient (CLI) | payer MEDICARE, MEDICAID | END 2017-10-24 23:59 | disposition home health service (06) | LOC: WOU 09:35 | PROVIDERS: ATTEND Podiatrist Foot & Ankle Surgery | DX: Z48.817 Encounter for surgical aftercare following surgery on the skin and subcutaneous tissue (principal); I83.213 Varicose veins of right lower extremity with both ulcer of ankle and inflammation; L97.319 Non-pressure chronic ulcer of right ankle with unspecified severity; Z87.891 Personal history of nicotine dependence; I82.503 Chronic embolism and thrombosis of unspecified deep veins of lower extremity, bilateral | CPT/HCPCS: A6253; A6402; A6452; G0463; Z7610 ==

== ENCOUNTER 2017-10-31 09:34 | Outpatient (CLI) | payer MEDICARE, MEDICAID | END 2017-10-31 23:59 | disposition home health service (06) | LOC: WOU 09:34 | PROVIDERS: ATTEND Podiatrist Foot & Ankle Surgery | DX: T81.31XD Disruption of external operation (surgical) wound, not elsewhere classified, subsequent encounter (principal); L97.818 Non-pressure chronic ulcer of other part of right lower leg with other specified severity; Z87.891 Personal history of nicotine dependence; I10 Essential (primary) hypertension; I83.213 Varicose veins of right lower extremity with both ulcer of ankle and inflammation; I82.503 Chronic embolism and thrombosis of unspecified deep veins of lower extremity, bilateral; Z79.82 Long term (current) use of aspirin; Z79.899 Other long term (current) drug therapy | CPT/HCPCS: A6253; A6402; A6452; G0463; Z7610 ==

== ENCOUNTER 2017-11-06 08:40 | Outpatient (CLI) | payer MEDICARE, MEDICAID | END 2017-11-06 23:59 | disposition home health service (06) | LOC: WOU 08:40 | PROVIDERS: ATTEND Specialist | DX: T81.31XA Disruption of external operation (surgical) wound, not elsewhere classified, initial encounter (principal); I83.213 Varicose veins of right lower extremity with both ulcer of ankle and inflammation; L97.918 Non-pressure chronic ulcer of unspecified part of right lower leg with other specified severity; Z87.891 Personal history of nicotine dependence; I10 Essential (primary) hypertension; I82.503 Chronic embolism and thrombosis of unspecified deep veins of lower extremity, bilateral; Z79.82 Long term (current) use of aspirin; Z79.899 Other long term (current) drug therapy | CPT/HCPCS: 87070-TC; 87186-TC; A6253; A6402; A6452; G0463; Z7610 ==

== ENCOUNTER 2017-11-07 11:30 | Outpatient (CLI) | payer MEDICARE, MEDICAID | END 2017-11-07 23:59 | disposition home health service (06) | LOC: WOU 11:30 | PROVIDERS: ATTEND Podiatrist Foot & Ankle Surgery | DX: T81.31XD Disruption of external operation (surgical) wound, not elsewhere classified, subsequent encounter (principal); I83.018 Varicose veins of right lower extremity with ulcer other part of lower leg; L97.818 Non-pressure chronic ulcer of other part of right lower leg with other specified severity; M79.661 Pain in right lower leg; Z87.891 Personal history of nicotine dependence; I82.503 Chronic embolism and thrombosis of unspecified deep veins of lower extremity, bilateral; Z79.82 Long term (current) use of aspirin; Z79.899 Other long term (current) drug therapy | CPT/HCPCS: A6253; A6402; A6452; G0463; Z7610 ==

== ENCOUNTER 2017-11-14 10:55 | Outpatient (CLI) | payer MEDICARE, MEDICAID | END 2017-11-14 23:59 | disposition home health service (06) | LOC: WOU 10:55 | PROVIDERS: ATTEND Podiatrist Foot & Ankle Surgery | DX: T86.828 Other complications of skin graft (allograft) (autograft) (principal); I83.213 Varicose veins of right lower extremity with both ulcer of ankle and inflammation; L97.312 Non-pressure chronic ulcer of right ankle with fat layer exposed; T81.31XD Disruption of external operation (surgical) wound, not elsewhere classified, subsequent encounter; M79.661 Pain in right lower leg; Z87.891 Personal history of nicotine dependence; I10 Essential (primary) hypertension; Z79.899 Other long term (current) drug therapy; Z79.82 Long term (current) use of aspirin; I70.202 Unspecified atherosclerosis of native arteries of extremities, left leg; I82.503 Chronic embolism and thrombosis of unspecified deep veins of lower extremity, bilateral | CPT/HCPCS: 11042; A6253; A6402; A6452; Z7610 ==

== ENCOUNTER 2017-11-21 11:10 | Outpatient (CLI) | payer MEDICARE, MEDICAID | END 2017-11-21 23:59 | disposition home health service (06) | LOC: WOU 11:10 | PROVIDERS: ATTEND Podiatrist Foot & Ankle Surgery | DX: I83.213 Varicose veins of right lower extremity with both ulcer of ankle and inflammation (principal); L97.312 Non-pressure chronic ulcer of right ankle with fat layer exposed; T86.828 Other complications of skin graft (allograft) (autograft); T81.31XD Disruption of external operation (surgical) wound, not elsewhere classified, subsequent encounter; I83.811 Varicose veins of right lower extremity with pain; Z87.891 Personal history of nicotine dependence; I82.503 Chronic embolism and thrombosis of unspecified deep veins of lower extremity, bilateral; Z79.82 Long term (current) use of aspirin; Z79.899 Other long term (current) drug therapy; K21.9 Gastro-esophageal reflux disease without esophagitis; N40.0 Benign prostatic hyperplasia without lower urinary tract symptoms; I10 Essential (primary) hypertension; I49.9 Cardiac arrhythmia, unspecified | CPT/HCPCS: 15271; A6253; A6402; A6452; Q4110 ×2; Z7610 ==

== ENCOUNTER 2017-11-28 10:30 | Outpatient (CLI) | payer MEDICARE, MEDICAID | END 2017-11-28 23:59 | disposition home health service (06) | LOC: WOU 10:30 | PROVIDERS: ATTEND Podiatrist Foot & Ankle Surgery | DX: I82.503 Chronic embolism and thrombosis of unspecified deep veins of lower extremity, bilateral (principal); T86.828 Other complications of skin graft (allograft) (autograft); I83.213 Varicose veins of right lower extremity with both ulcer of ankle and inflammation; L97.312 Non-pressure chronic ulcer of right ankle with fat layer exposed; T81.31XD Disruption of external operation (surgical) wound, not elsewhere classified, subsequent encounter; Z87.891 Personal history of nicotine dependence; I10 Essential (primary) hypertension; Z79.82 Long term (current) use of aspirin; Z79.899 Other long term (current) drug therapy | CPT/HCPCS: 15271; A6253; A6402; A6452; Q4110 ×2; Z7610 ==

== ENCOUNTER 2017-12-05 10:20 | Outpatient (CLI) | payer MEDICARE, MEDICAID | END 2017-12-05 23:59 | disposition home health service (06) | LOC: WOU 10:20 | PROVIDERS: ATTEND Podiatrist Foot & Ankle Surgery | DX: T86.828 Other complications of skin graft (allograft) (autograft) (principal); I83.218 Varicose veins of right lower extremity with both ulcer of other part of lower extremity and inflammation; L97.812 Non-pressure chronic ulcer of other part of right lower leg with fat layer exposed; T81.31XD Disruption of external operation (surgical) wound, not elsewhere classified, subsequent encounter; M79.661 Pain in right lower leg; I82.503 Chronic embolism and thrombosis of unspecified deep veins of lower extremity, bilateral; Z79.82 Long term (current) use of aspirin; Z79.899 Other long term (current) drug therapy | CPT/HCPCS: 11042; A6402; A6452; Z7610 ==

== ENCOUNTER 2017-12-11 10:42 | Outpatient (CLI) | payer MEDICARE, MEDICAID | END 2017-12-11 23:59 | disposition home or self-care (01) | LOC: WOU 10:42 | PROVIDERS: ATTEND Podiatrist Foot & Ankle Surgery | DX: T86.828 Other complications of skin graft (allograft) (autograft) (principal); I83.213 Varicose veins of right lower extremity with both ulcer of ankle and inflammation; L97.312 Non-pressure chronic ulcer of right ankle with fat layer exposed; T81.31XD Disruption of external operation (surgical) wound, not elsewhere classified, subsequent encounter; L03.115 Cellulitis of right lower limb; I10 Essential (primary) hypertension; Z87.891 Personal history of nicotine dependence; I82.503 Chronic embolism and thrombosis of unspecified deep veins of lower extremity, bilateral | CPT/HCPCS: 11042; A6402; A6452; Z7610 ==

== ENCOUNTER 2017-12-16 10:30 | Outpatient (CLI) | payer MEDICARE, MEDICAID | END 2017-12-16 23:59 | disposition home health service (06) | LOC: WOU 10:30 | PROVIDERS: ATTEND Podiatrist Foot & Ankle Surgery | DX: T86.828 Other complications of skin graft (allograft) (autograft) (principal); I83.213 Varicose veins of right lower extremity with both ulcer of ankle and inflammation; L97.812 Non-pressure chronic ulcer of other part of right lower leg with fat layer exposed; T81.31XD Disruption of external operation (surgical) wound, not elsewhere classified, subsequent encounter; M79.661 Pain in right lower leg; I10 Essential (primary) hypertension; Z87.891 Personal history of nicotine dependence; Z79.82 Long term (current) use of aspirin | CPT/HCPCS: 11042; A6402; A6452; Z7610 ==

== ENCOUNTER 2017-12-18 10:54 | Outpatient (CLI) | payer MEDICARE, MEDICAID | END 2017-12-18 23:59 | disposition home health service (06) | LOC: WOU 10:54 | PROVIDERS: ATTEND Specialist | DX: T86.828 Other complications of skin graft (allograft) (autograft) (principal); I83.218 Varicose veins of right lower extremity with both ulcer of other part of lower extremity and inflammation; L97.812 Non-pressure chronic ulcer of other part of right lower leg with fat layer exposed; T81.31XD Disruption of external operation (surgical) wound, not elsewhere classified, subsequent encounter; Z87.891 Personal history of nicotine dependence; I82.509 Chronic embolism and thrombosis of unspecified deep veins of unspecified lower extremity; I10 Essential (primary) hypertension | CPT/HCPCS: A6402; A6452; G0463; Z7610 ==

== ENCOUNTER 2018-02-24 08:00 | Outpatient (CLI) | payer MEDICARE, MEDICAID | END 2018-02-24 23:59 | disposition home health service (06) | LOC: WOU 08:00 | PROVIDERS: ATTEND Podiatrist Foot & Ankle Surgery | DX: T86.828 Other complications of skin graft (allograft) (autograft) (principal); I83.213 Varicose veins of right lower extremity with both ulcer of ankle and inflammation; L97.812 Non-pressure chronic ulcer of other part of right lower leg with fat layer exposed; L95.8 Other vasculitis limited to the skin; T81.31XD Disruption of external operation (surgical) wound, not elsewhere classified, subsequent encounter; M79.661 Pain in right lower leg; I10 Essential (primary) hypertension; Z87.891 Personal history of nicotine dependence | CPT/HCPCS: 11042; A6207; A6402; Z7610 ==

== ENCOUNTER 2018-03-06 08:10 | Outpatient (CLI) | payer MEDICARE, MEDICAID | END 2018-03-06 23:59 | disposition home health service (06) | LOC: WOU 08:10 | PROVIDERS: ATTEND Podiatrist Foot & Ankle Surgery | DX: T86.828 Other complications of skin graft (allograft) (autograft) (principal); I83.213 Varicose veins of right lower extremity with both ulcer of ankle and inflammation; L97.312 Non-pressure chronic ulcer of right ankle with fat layer exposed; T81.31XD Disruption of external operation (surgical) wound, not elsewhere classified, subsequent encounter; Z87.891 Personal history of nicotine dependence; I82.503 Chronic embolism and thrombosis of unspecified deep veins of lower extremity, bilateral; M31.8 Other specified necrotizing vasculopathies; Z79.82 Long term (current) use of aspirin; Z79.899 Other long term (current) drug therapy; I10 Essential (primary) hypertension | CPT/HCPCS: 11042; A6207; A6402; Z7610 ==

== ENCOUNTER 2018-03-13 08:00 | Outpatient (CLI) | payer MEDICARE, MEDICAID ==
[~2018-03-13 08:00] MED LIST changes: +CEFTRIAXONE 1GM BAG (ER ONLY) 50 ML IV ONE; -ROSU20TA PO; +ROSU20TA2 PO
== END 2018-03-13 23:59 | disposition home health service (06) ==
LOC: WOU 08:00
PROVIDERS: ATTEND Podiatrist Foot & Ankle Surgery
DX: T86.828 Other complications of skin graft (allograft) (autograft) (principal); I83.213 Varicose veins of right lower extremity with both ulcer of ankle and inflammation; L95.8 Other vasculitis limited to the skin; M79.661 Pain in right lower leg; L97.312 Non-pressure chronic ulcer of right ankle with fat layer exposed; Z87.891 Personal history of nicotine dependence; I82.503 Chronic embolism and thrombosis of unspecified deep veins of lower extremity, bilateral; I10 Essential (primary) hypertension; T81.31XD Disruption of external operation (surgical) wound, not elsewhere classified, subsequent encounter
CPT/HCPCS: 11042; A6207; A6402; J0696

== ENCOUNTER 2018-03-20 08:35 | Outpatient (CLI) | payer MEDICARE, MEDICAID ==
[~2018-03-20 08:35] MED LIST changes: -CEFTRIAXONE 1GM BAG (ER ONLY) 50 ML IV ONE
== END 2018-03-20 23:59 | disposition home health service (06) ==
LOC: WOU 08:35
PROVIDERS: ATTEND Podiatrist Foot & Ankle Surgery
DX: I83.018 Varicose veins of right lower extremity with ulcer other part of lower leg (principal); L97.812 Non-pressure chronic ulcer of other part of right lower leg with fat layer exposed; L95.8 Other vasculitis limited to the skin; T81.31XD Disruption of external operation (surgical) wound, not elsewhere classified, subsequent encounter; T86.828 Other complications of skin graft (allograft) (autograft); I87.2 Venous insufficiency (chronic) (peripheral); Z87.891 Personal history of nicotine dependence; Z82.49 Family history of ischemic heart disease and other diseases of the circulatory system
CPT/HCPCS: 11042; A6207; Z7610

== ENCOUNTER 2018-03-27 08:58 | Outpatient (CLI) | payer MEDICARE, MEDICAID | END 2018-03-27 23:59 | disposition home health service (06) | LOC: WOU 08:58 | PROVIDERS: ATTEND Podiatrist Foot & Ankle Surgery | DX: I83.213 Varicose veins of right lower extremity with both ulcer of ankle and inflammation (principal); L97.312 Non-pressure chronic ulcer of right ankle with fat layer exposed; T86.828 Other complications of skin graft (allograft) (autograft); T81.31XD Disruption of external operation (surgical) wound, not elsewhere classified, subsequent encounter; M79.661 Pain in right lower leg; I82.503 Chronic embolism and thrombosis of unspecified deep veins of lower extremity, bilateral; Z79.82 Long term (current) use of aspirin; Z79.899 Other long term (current) drug therapy; Z87.891 Personal history of nicotine dependence; I10 Essential (primary) hypertension | CPT/HCPCS: 11042; A6207; A6402 ==

== ENCOUNTER 2018-04-03 08:00 | Outpatient (CLI) | payer MEDICARE, MEDICAID | END 2018-04-03 23:59 | disposition home health service (06) | LOC: WOU 08:00 | PROVIDERS: ATTEND Podiatrist Foot & Ankle Surgery | DX: I83.213 Varicose veins of right lower extremity with both ulcer of ankle and inflammation (principal); L97.312 Non-pressure chronic ulcer of right ankle with fat layer exposed; M79.661 Pain in right lower leg; T86.828 Other complications of skin graft (allograft) (autograft); T81.31XD Disruption of external operation (surgical) wound, not elsewhere classified, subsequent encounter; M31.8 Other specified necrotizing vasculopathies; I82.503 Chronic embolism and thrombosis of unspecified deep veins of lower extremity, bilateral; Z79.82 Long term (current) use of aspirin; Z79.899 Other long term (current) drug therapy; Z87.891 Personal history of nicotine dependence; I10 Essential (primary) hypertension | CPT/HCPCS: 11042; A6207; A6402 ==

== ENCOUNTER 2018-04-10 08:10 | Outpatient (CLI) | payer MEDICARE, MEDICAID | END 2018-04-10 23:59 | disposition home health service (06) | LOC: WOU 08:10 | PROVIDERS: ATTEND Podiatrist Foot & Ankle Surgery | DX: T86.828 Other complications of skin graft (allograft) (autograft) (principal); I83.213 Varicose veins of right lower extremity with both ulcer of ankle and inflammation; L97.312 Non-pressure chronic ulcer of right ankle with fat layer exposed; L95.9 Vasculitis limited to the skin, unspecified; Z79.52 Long term (current) use of systemic steroids; T81.31XD Disruption of external operation (surgical) wound, not elsewhere classified, subsequent encounter; Z87.891 Personal history of nicotine dependence; I10 Essential (primary) hypertension; R60.0 Localized edema | CPT/HCPCS: 11042; A6207; A6402; Z7610 ==

== ENCOUNTER 2018-04-17 08:45 | Outpatient (CLI) | payer MEDICARE, MEDICAID | END 2018-04-17 23:59 | disposition home health service (06) | LOC: WOU 08:45 | PROVIDERS: ATTEND Podiatrist Foot & Ankle Surgery | DX: I83.213 Varicose veins of right lower extremity with both ulcer of ankle and inflammation (principal); L97.312 Non-pressure chronic ulcer of right ankle with fat layer exposed; T86.828 Other complications of skin graft (allograft) (autograft); M79.661 Pain in right lower leg; L95.8 Other vasculitis limited to the skin; T81.31XD Disruption of external operation (surgical) wound, not elsewhere classified, subsequent encounter; Z87.891 Personal history of nicotine dependence; I82.503 Chronic embolism and thrombosis of unspecified deep veins of lower extremity, bilateral; Z79.82 Long term (current) use of aspirin; Z79.899 Other long term (current) drug therapy; Z79.52 Long term (current) use of systemic steroids | CPT/HCPCS: 11042; A6207; A6402 ==

== ENCOUNTER 2018-04-24 09:50 | Outpatient (CLI) | payer MEDICARE, MEDICAID | END 2018-04-24 23:59 | disposition home health service (06) | LOC: WOU 09:50 | PROVIDERS: ATTEND Podiatrist Foot & Ankle Surgery | DX: I83.213 Varicose veins of right lower extremity with both ulcer of ankle and inflammation (principal); L97.812 Non-pressure chronic ulcer of other part of right lower leg with fat layer exposed; T86.821 Skin graft (allograft) (autograft) failure; T81.31XD Disruption of external operation (surgical) wound, not elsewhere classified, subsequent encounter; I10 Essential (primary) hypertension; Z87.891 Personal history of nicotine dependence; I82.503 Chronic embolism and thrombosis of unspecified deep veins of lower extremity, bilateral; L95.8 Other vasculitis limited to the skin; Z79.82 Long term (current) use of aspirin; Z79.899 Other long term (current) drug therapy; Z79.52 Long term (current) use of systemic steroids | CPT/HCPCS: 11042; A6207; A6402 ==

== ENCOUNTER 2018-05-01 11:10 | Outpatient (CLI) | payer MEDICARE, MEDICAID | END 2018-05-01 23:59 | disposition home health service (06) | LOC: WOU 11:10 | PROVIDERS: ATTEND Surgery | DX: T86.828 Other complications of skin graft (allograft) (autograft) (principal); I83.213 Varicose veins of right lower extremity with both ulcer of ankle and inflammation; L97.312 Non-pressure chronic ulcer of right ankle with fat layer exposed; M79.661 Pain in right lower leg; L59.8 Other specified disorders of the skin and subcutaneous tissue related to radiation; Z79.52 Long term (current) use of systemic steroids; Z87.891 Personal history of nicotine dependence; I82.503 Chronic embolism and thrombosis of unspecified deep veins of lower extremity, bilateral; I10 Essential (primary) hypertension; Z79.82 Long term (current) use of aspirin; T81.31XD Disruption of external operation (surgical) wound, not elsewhere classified, subsequent encounter | CPT/HCPCS: 11042; A6207; A6402 ×2 ==

== ENCOUNTER 2018-05-08 09:35 | Outpatient (CLI) | payer MEDICARE, MEDICAID | END 2018-05-08 23:59 | disposition home health service (06) | LOC: WOU 09:35 | PROVIDERS: ATTEND Podiatrist Foot & Ankle Surgery | DX: I83.213 Varicose veins of right lower extremity with both ulcer of ankle and inflammation (principal); L97.312 Non-pressure chronic ulcer of right ankle with fat layer exposed; T81.31XD Disruption of external operation (surgical) wound, not elsewhere classified, subsequent encounter; T86.828 Other complications of skin graft (allograft) (autograft); I87.2 Venous insufficiency (chronic) (peripheral); L59.8 Other specified disorders of the skin and subcutaneous tissue related to radiation; I82.503 Chronic embolism and thrombosis of unspecified deep veins of lower extremity, bilateral; Z79.82 Long term (current) use of aspirin; Z79.899 Other long term (current) drug therapy; Z79.52 Long term (current) use of systemic steroids | CPT/HCPCS: 11042; A6207; A6402 ==

== ENCOUNTER 2018-05-15 09:40 | Outpatient (CLI) | payer MEDICARE, MEDICAID | END 2018-05-15 23:59 | disposition home health service (06) | LOC: WOU 09:40 | PROVIDERS: ATTEND Podiatrist Foot & Ankle Surgery | DX: I83.213 Varicose veins of right lower extremity with both ulcer of ankle and inflammation (principal); L97.312 Non-pressure chronic ulcer of right ankle with fat layer exposed; T81.31XD Disruption of external operation (surgical) wound, not elsewhere classified, subsequent encounter; T86.828 Other complications of skin graft (allograft) (autograft); L95.8 Other vasculitis limited to the skin; I83.811 Varicose veins of right lower extremity with pain; I82.503 Chronic embolism and thrombosis of unspecified deep veins of lower extremity, bilateral; Z87.891 Personal history of nicotine dependence; I10 Essential (primary) hypertension; Z79.82 Long term (current) use of aspirin; Z79.899 Other long term (current) drug therapy | CPT/HCPCS: 11042; A6207; A6402 ==

== ENCOUNTER 2018-05-22 09:35 | Outpatient (CLI) | payer MEDICARE, MEDICAID | END 2018-05-22 23:59 | disposition home health service (06) | LOC: WOU 09:35 | PROVIDERS: ATTEND Podiatrist Foot & Ankle Surgery | DX: I83.213 Varicose veins of right lower extremity with both ulcer of ankle and inflammation (principal); L97.312 Non-pressure chronic ulcer of right ankle with fat layer exposed; T86.828 Other complications of skin graft (allograft) (autograft); T81.31XD Disruption of external operation (surgical) wound, not elsewhere classified, subsequent encounter; L95.8 Other vasculitis limited to the skin; Z87.891 Personal history of nicotine dependence; I82.503 Chronic embolism and thrombosis of unspecified deep veins of lower extremity, bilateral | CPT/HCPCS: 11042; A6207; A6402 ==

== ENCOUNTER 2018-05-29 09:20 | Outpatient (CLI) | payer MEDICARE, MEDICAID | END 2018-05-29 23:59 | disposition home health service (06) | LOC: WOU 09:20 | PROVIDERS: ATTEND Podiatrist Foot & Ankle Surgery | DX: I83.213 Varicose veins of right lower extremity with both ulcer of ankle and inflammation (principal); L97.312 Non-pressure chronic ulcer of right ankle with fat layer exposed; L95.8 Other vasculitis limited to the skin; T81.31XD Disruption of external operation (surgical) wound, not elsewhere classified, subsequent encounter; T86.828 Other complications of skin graft (allograft) (autograft); M79.661 Pain in right lower leg; I10 Essential (primary) hypertension; Z87.891 Personal history of nicotine dependence; I82.503 Chronic embolism and thrombosis of unspecified deep veins of lower extremity, bilateral; Z79.82 Long term (current) use of aspirin; Z79.899 Other long term (current) drug therapy; Z79.52 Long term (current) use of systemic steroids | CPT/HCPCS: 11042; A6207; A6402 ==

== ENCOUNTER 2018-06-05 09:30 | Outpatient (CLI) | payer MEDICARE, MEDICAID | END 2018-06-05 23:59 | disposition home health service (06) | LOC: WOU 09:30 | PROVIDERS: ATTEND Podiatrist Foot & Ankle Surgery | DX: I83.213 Varicose veins of right lower extremity with both ulcer of ankle and inflammation (principal); L97.312 Non-pressure chronic ulcer of right ankle with fat layer exposed; Z87.891 Personal history of nicotine dependence; I82.503 Chronic embolism and thrombosis of unspecified deep veins of lower extremity, bilateral; I10 Essential (primary) hypertension; T86.828 Other complications of skin graft (allograft) (autograft); M79.661 Pain in right lower leg; T81.31XD Disruption of external operation (surgical) wound, not elsewhere classified, subsequent encounter; L95.8 Other vasculitis limited to the skin; Z79.82 Long term (current) use of aspirin; Z79.52 Long term (current) use of systemic steroids | CPT/HCPCS: 11042; A6207; A6402 ==

== ENCOUNTER → 2018-06-12 | Day surgery (SDC) | payer MEDICARE, MEDICAID ==
[~2018-06-12] MED LIST changes: +BUPIVACAINE 0.5 % PF 150 MG/30 ML VIAL ONE; +BUPIVACAINE MPF 0.5% W/EPI INJ 30 ML VIAL ONE; +HYDROMORPHONE INJ 2 MG/ML DISP.SYRIN ONE; +LIDOCAINE HCL/PF 1% 30 ML SDV ONE; +MINERAL OIL 10 ML VIAL MC ONE
== END | disposition home or self-care (01) ==
LOC: DS 05:16
PROVIDERS: ATTEND Surgery
DX: J44.9 Chronic obstructive pulmonary disease, unspecified (principal); I10 Essential (primary) hypertension; Z79.899 Other long term (current) drug therapy
CPT/HCPCS: 15002; 15220; 97605; A6402 ×2; J0690; J1100; J1170 ×2; J2405; J2704; J3490 ×4; J7030

== ENCOUNTER 2018-06-19 09:15 | Outpatient (CLI) | payer MEDICARE, MEDICAID ==
[~2018-06-19 09:15] MED LIST changes: -BUPIVACAINE 0.5 % PF 150 MG/30 ML VIAL ONE; -BUPIVACAINE MPF 0.5% W/EPI INJ 30 ML VIAL ONE; -HYDROMORPHONE INJ 2 MG/ML DISP.SYRIN ONE; -LIDOCAINE HCL/PF 1% 30 ML SDV ONE; -MINERAL OIL 10 ML VIAL MC ONE
== END 2018-06-19 23:59 | disposition home health service (06) ==
LOC: WOU 09:15
PROVIDERS: ATTEND Podiatrist Foot & Ankle Surgery
DX: Z48.817 Encounter for surgical aftercare following surgery on the skin and subcutaneous tissue (principal); I83.213 Varicose veins of right lower extremity with both ulcer of ankle and inflammation; L97.312 Non-pressure chronic ulcer of right ankle with fat layer exposed; M79.661 Pain in right lower leg; I10 Essential (primary) hypertension; Z87.891 Personal history of nicotine dependence; I82.5Z3 Chronic embolism and thrombosis of unspecified deep veins of distal lower extremity, bilateral
CPT/HCPCS: A6402; A6452; G0463

== ENCOUNTER 2018-06-23 09:10 | Outpatient (CLI) | payer MEDICARE, MEDICAID | END 2018-06-23 23:59 | disposition home health service (06) | LOC: WOU 09:10 | PROVIDERS: ATTEND Podiatrist Foot & Ankle Surgery | DX: I83.213 Varicose veins of right lower extremity with both ulcer of ankle and inflammation (principal); L97.312 Non-pressure chronic ulcer of right ankle with fat layer exposed; T81.31XS Disruption of external operation (surgical) wound, not elsewhere classified, sequela; M79.661 Pain in right lower leg; I10 Essential (primary) hypertension; Z87.891 Personal history of nicotine dependence; Z79.82 Long term (current) use of aspirin; Z79.52 Long term (current) use of systemic steroids | CPT/HCPCS: 11042; A6402; A6452 ==

== ENCOUNTER 2018-06-25 08:45 | Outpatient (CLI) | payer MEDICARE, MEDICAID | END 2018-06-25 23:59 | disposition home health service (06) | LOC: WOU 08:45 | PROVIDERS: ATTEND Specialist | DX: T86.828 Other complications of skin graft (allograft) (autograft) (principal); I83.213 Varicose veins of right lower extremity with both ulcer of ankle and inflammation; L97.312 Non-pressure chronic ulcer of right ankle with fat layer exposed; T81.31XS Disruption of external operation (surgical) wound, not elsewhere classified, sequela; Z87.891 Personal history of nicotine dependence; I82.503 Chronic embolism and thrombosis of unspecified deep veins of lower extremity, bilateral; Z79.82 Long term (current) use of aspirin; Z79.899 Other long term (current) drug therapy; I10 Essential (primary) hypertension | CPT/HCPCS: A6402; A6452; G0463 ==

== ENCOUNTER 2018-06-30 11:05 | Outpatient (CLI) | payer MEDICARE, MEDICAID | END 2018-06-30 23:59 | disposition home health service (06) | LOC: WOU 11:05 | PROVIDERS: ATTEND Podiatrist Foot & Ankle Surgery | DX: I83.213 Varicose veins of right lower extremity with both ulcer of ankle and inflammation (principal); L97.812 Non-pressure chronic ulcer of other part of right lower leg with fat layer exposed; T86.828 Other complications of skin graft (allograft) (autograft); T81.31XS Disruption of external operation (surgical) wound, not elsewhere classified, sequela; M79.661 Pain in right lower leg; Z79.82 Long term (current) use of aspirin; I10 Essential (primary) hypertension; Z87.891 Personal history of nicotine dependence | CPT/HCPCS: A6402; A6452; G0463 ==

== ENCOUNTER 2018-07-07 10:50 | Outpatient (CLI) | payer MEDICARE, MEDICAID | END 2018-07-07 23:59 | disposition home health service (06) | LOC: WOU 10:50 | PROVIDERS: ATTEND Podiatrist Foot & Ankle Surgery | DX: I83.213 Varicose veins of right lower extremity with both ulcer of ankle and inflammation (principal); L97.812 Non-pressure chronic ulcer of other part of right lower leg with fat layer exposed; T86.828 Other complications of skin graft (allograft) (autograft); T81.31XS Disruption of external operation (surgical) wound, not elsewhere classified, sequela; M79.661 Pain in right lower leg; I10 Essential (primary) hypertension; Z87.891 Personal history of nicotine dependence; Z79.82 Long term (current) use of aspirin | CPT/HCPCS: 11042; A6402; A6452 ==

== ENCOUNTER 2018-07-14 09:20 | Outpatient (CLI) | payer MEDICARE, MEDICAID | END 2018-07-14 23:59 | disposition home health service (06) | LOC: WOU 09:20 | PROVIDERS: ATTEND Podiatrist Foot & Ankle Surgery | DX: I83.213 Varicose veins of right lower extremity with both ulcer of ankle and inflammation (principal); L97.812 Non-pressure chronic ulcer of other part of right lower leg with fat layer exposed; T86.828 Other complications of skin graft (allograft) (autograft); T81.31XS Disruption of external operation (surgical) wound, not elsewhere classified, sequela; I10 Essential (primary) hypertension; Z79.82 Long term (current) use of aspirin; Z87.891 Personal history of nicotine dependence | CPT/HCPCS: 11042; A6402; A6452 ==

== ENCOUNTER 2018-07-21 09:54 | Outpatient (CLI) | payer MEDICARE, MEDICAID | END 2018-07-21 23:59 | disposition home health service (06) | LOC: WOU 09:54 | PROVIDERS: ATTEND Podiatrist Foot & Ankle Surgery | DX: I83.213 Varicose veins of right lower extremity with both ulcer of ankle and inflammation (principal); L97.812 Non-pressure chronic ulcer of other part of right lower leg with fat layer exposed; T86.828 Other complications of skin graft (allograft) (autograft); M79.661 Pain in right lower leg; I10 Essential (primary) hypertension; Z79.82 Long term (current) use of aspirin; Z79.52 Long term (current) use of systemic steroids | CPT/HCPCS: 11042; A6402; A6452 ==

== ENCOUNTER 2018-07-30 09:50 | Outpatient (CLI) | payer MEDICARE, MEDICAID | END 2018-07-30 23:59 | disposition home health service (06) | LOC: WOU 09:50 | PROVIDERS: ATTEND Specialist | DX: I83.213 Varicose veins of right lower extremity with both ulcer of ankle and inflammation (principal); T86.828 Other complications of skin graft (allograft) (autograft); L97.312 Non-pressure chronic ulcer of right ankle with fat layer exposed; T81.31XS Disruption of external operation (surgical) wound, not elsewhere classified, sequela; M79.661 Pain in right lower leg; Z87.891 Personal history of nicotine dependence; I10 Essential (primary) hypertension; I82.503 Chronic embolism and thrombosis of unspecified deep veins of lower extremity, bilateral; Z79.82 Long term (current) use of aspirin | CPT/HCPCS: A6402; A6452; G0463 ==

== ENCOUNTER 2018-08-05 09:05 | Outpatient (CLI) | payer MEDICARE, MEDICAID | END 2018-08-05 23:59 | disposition home health service (06) | LOC: WOU 09:05 | PROVIDERS: ATTEND Podiatrist Foot & Ankle Surgery | DX: I83.213 Varicose veins of right lower extremity with both ulcer of ankle and inflammation (principal); L97.812 Non-pressure chronic ulcer of other part of right lower leg with fat layer exposed; I10 Essential (primary) hypertension; Z79.82 Long term (current) use of aspirin; Z79.52 Long term (current) use of systemic steroids | CPT/HCPCS: 15271; A6402; A6452; Q4158 ==

== ENCOUNTER 2018-08-11 08:10 | Outpatient (CLI) | payer MEDICARE, MEDICAID | END 2018-08-11 23:59 | disposition home health service (06) | LOC: WOU 08:10 | PROVIDERS: ATTEND Podiatrist Foot & Ankle Surgery | DX: I83.213 Varicose veins of right lower extremity with both ulcer of ankle and inflammation (principal); L97.812 Non-pressure chronic ulcer of other part of right lower leg with fat layer exposed; M79.661 Pain in right lower leg; I10 Essential (primary) hypertension; Z87.891 Personal history of nicotine dependence; Z79.82 Long term (current) use of aspirin; Z79.52 Long term (current) use of systemic steroids | CPT/HCPCS: 15275; A6207; A6402; Q4158 ==

== ENCOUNTER 2018-08-18 08:20 | Outpatient (CLI) | payer MEDICARE, MEDICAID | END 2018-08-18 23:59 | disposition home health service (06) | LOC: WOU 08:20 | PROVIDERS: ATTEND Podiatrist Foot & Ankle Surgery | DX: I87.311 Chronic venous hypertension (idiopathic) with ulcer of right lower extremity (principal); L97.812 Non-pressure chronic ulcer of other part of right lower leg with fat layer exposed; M79.661 Pain in right lower leg; I10 Essential (primary) hypertension; Z87.891 Personal history of nicotine dependence; Z79.82 Long term (current) use of aspirin; Z79.52 Long term (current) use of systemic steroids | CPT/HCPCS: 15271; A6207; A6402; Q4158 ==

== ENCOUNTER 2018-08-25 08:00 | Outpatient (CLI) | payer MEDICARE, MEDICAID | END 2018-08-25 23:59 | disposition home or self-care (01) | LOC: WOU 08:00 | PROVIDERS: ATTEND Podiatrist Foot & Ankle Surgery | DX: I87.311 Chronic venous hypertension (idiopathic) with ulcer of right lower extremity (principal); L97.812 Non-pressure chronic ulcer of other part of right lower leg with fat layer exposed; I10 Essential (primary) hypertension; Z79.82 Long term (current) use of aspirin; Z79.52 Long term (current) use of systemic steroids; Z87.891 Personal history of nicotine dependence | CPT/HCPCS: 15271; A6207; A6402; Q4158 ==

== ENCOUNTER 2018-09-01 08:10 | Outpatient (CLI) | payer MEDICARE, MEDICAID | END 2018-09-01 23:59 | disposition home health service (06) | LOC: WOU 08:10 | PROVIDERS: ATTEND Podiatrist Foot & Ankle Surgery | DX: I87.311 Chronic venous hypertension (idiopathic) with ulcer of right lower extremity (principal); L97.812 Non-pressure chronic ulcer of other part of right lower leg with fat layer exposed; Z79.82 Long term (current) use of aspirin; Z79.52 Long term (current) use of systemic steroids | CPT/HCPCS: 15275; A6207; A6402; Q4158 ==

== ENCOUNTER 2018-09-08 08:05 | Outpatient (CLI) | payer MEDICARE, MEDICAID | END 2018-09-08 23:59 | disposition home health service (06) | LOC: WOU 08:05 | PROVIDERS: ATTEND Podiatrist Foot & Ankle Surgery | DX: I87.311 Chronic venous hypertension (idiopathic) with ulcer of right lower extremity (principal); L97.812 Non-pressure chronic ulcer of other part of right lower leg with fat layer exposed; M79.661 Pain in right lower leg; I10 Essential (primary) hypertension; Z87.891 Personal history of nicotine dependence; Z79.82 Long term (current) use of aspirin; Z79.52 Long term (current) use of systemic steroids | CPT/HCPCS: 15271; A6207; A6402; Q4158 ==

== ENCOUNTER 2018-09-15 08:00 | Outpatient (CLI) | payer MEDICARE, MEDICAID | END 2018-09-15 23:59 | disposition home health service (06) | LOC: WOU 08:00 | PROVIDERS: ATTEND Podiatrist Foot & Ankle Surgery | DX: I87.311 Chronic venous hypertension (idiopathic) with ulcer of right lower extremity (principal); L97.812 Non-pressure chronic ulcer of other part of right lower leg with fat layer exposed; I10 Essential (primary) hypertension; M79.661 Pain in right lower leg; Z79.82 Long term (current) use of aspirin; Z79.52 Long term (current) use of systemic steroids | CPT/HCPCS: 15271; A6207; A6402 ×2; Q4158 ==

== ENCOUNTER 2018-09-22 08:20 | Outpatient (CLI) | payer MEDICARE, MEDICAID | END 2018-09-22 23:59 | disposition home health service (06) | LOC: WOU 08:20 | PROVIDERS: ATTEND Podiatrist Foot & Ankle Surgery | DX: I87.311 Chronic venous hypertension (idiopathic) with ulcer of right lower extremity (principal); L97.812 Non-pressure chronic ulcer of other part of right lower leg with fat layer exposed; M79.661 Pain in right lower leg; I10 Essential (primary) hypertension; Z87.891 Personal history of nicotine dependence; Z79.82 Long term (current) use of aspirin; Z79.52 Long term (current) use of systemic steroids | CPT/HCPCS: 15271; A6207; A6402; Q4158 ==

== ENCOUNTER 2018-09-29 08:00 | Outpatient (CLI) | payer MEDICARE, MEDICAID | END 2018-09-29 23:59 | disposition home health service (06) | LOC: WOU 08:00 | PROVIDERS: ATTEND Podiatrist Foot & Ankle Surgery | DX: I87.311 Chronic venous hypertension (idiopathic) with ulcer of right lower extremity (principal); L97.812 Non-pressure chronic ulcer of other part of right lower leg with fat layer exposed; T86.821 Skin graft (allograft) (autograft) failure; M79.661 Pain in right lower leg; I10 Essential (primary) hypertension; Z79.82 Long term (current) use of aspirin; Z79.52 Long term (current) use of systemic steroids | CPT/HCPCS: 11042; A6207 ==

== ENCOUNTER 2018-10-13 08:05 | Outpatient (CLI) | payer MEDICARE, MEDICAID | END 2018-10-13 23:59 | disposition home or self-care (01) | LOC: WOU 08:05 | PROVIDERS: ATTEND Podiatrist Foot & Ankle Surgery | DX: I87.311 Chronic venous hypertension (idiopathic) with ulcer of right lower extremity (principal); L97.812 Non-pressure chronic ulcer of other part of right lower leg with fat layer exposed; I87.2 Venous insufficiency (chronic) (peripheral); M79.661 Pain in right lower leg; Z79.82 Long term (current) use of aspirin; I10 Essential (primary) hypertension; Z87.891 Personal history of nicotine dependence | CPT/HCPCS: 11042; A6207 ==

== ENCOUNTER 2018-10-20 08:05 | Outpatient (CLI) | payer MEDICARE, MEDICAID | END 2018-10-20 23:59 | disposition home health service (06) | LOC: WOU 08:05 | PROVIDERS: ATTEND Podiatrist Foot & Ankle Surgery | DX: I87.311 Chronic venous hypertension (idiopathic) with ulcer of right lower extremity (principal); L97.812 Non-pressure chronic ulcer of other part of right lower leg with fat layer exposed; I87.2 Venous insufficiency (chronic) (peripheral); M79.661 Pain in right lower leg; Z79.82 Long term (current) use of aspirin; Z79.52 Long term (current) use of systemic steroids | CPT/HCPCS: C5271; Q4117 ×2; 15271; A6207 ==

== ENCOUNTER 2018-11-03 08:05 | Outpatient (CLI) | payer MEDICARE, MEDICAID | END 2018-11-03 23:59 | disposition home health service (06) | LOC: WOU 08:05 | PROVIDERS: ATTEND Podiatrist Foot & Ankle Surgery | DX: I87.311 Chronic venous hypertension (idiopathic) with ulcer of right lower extremity (principal); L97.812 Non-pressure chronic ulcer of other part of right lower leg with fat layer exposed; I87.2 Venous insufficiency (chronic) (peripheral); M79.661 Pain in right lower leg; Z79.82 Long term (current) use of aspirin; Z79.52 Long term (current) use of systemic steroids | CPT/HCPCS: A6207; C5271; Q4117 ×2 ==

== ENCOUNTER 2018-11-17 08:10 | Outpatient (CLI) | payer MEDICARE, MEDICAID | END 2018-11-17 23:59 | disposition home health service (06) | LOC: WOU 08:10 | PROVIDERS: ATTEND Podiatrist Foot & Ankle Surgery | DX: I87.311 Chronic venous hypertension (idiopathic) with ulcer of right lower extremity (principal); L97.812 Non-pressure chronic ulcer of other part of right lower leg with fat layer exposed; I87.2 Venous insufficiency (chronic) (peripheral); M79.661 Pain in right lower leg; I10 Essential (primary) hypertension; Z79.82 Long term (current) use of aspirin; Z79.52 Long term (current) use of systemic steroids; Z87.891 Personal history of nicotine dependence | CPT/HCPCS: A6207; C5271; Q4117 ×2 ==

== ENCOUNTER 2018-12-01 08:05 | Outpatient (CLI) | payer MEDICARE, MEDICAID | END 2018-12-01 23:59 | disposition home health service (06) | LOC: WOU 08:05 | PROVIDERS: ATTEND Podiatrist Foot & Ankle Surgery | DX: I87.311 Chronic venous hypertension (idiopathic) with ulcer of right lower extremity (principal); L97.812 Non-pressure chronic ulcer of other part of right lower leg with fat layer exposed; I87.2 Venous insufficiency (chronic) (peripheral); M79.661 Pain in right lower leg; Z79.82 Long term (current) use of aspirin; Z79.52 Long term (current) use of systemic steroids | CPT/HCPCS: A6452 ×2; C5271; Q4117 ×2 ==

== ENCOUNTER 2018-12-15 08:30 | Outpatient (CLI) | payer MEDICARE, MEDICAID | END 2018-12-15 23:59 | disposition home health service (06) | LOC: WOU 08:30 | PROVIDERS: ATTEND Podiatrist Foot & Ankle Surgery | DX: I87.311 Chronic venous hypertension (idiopathic) with ulcer of right lower extremity (principal); L97.812 Non-pressure chronic ulcer of other part of right lower leg with fat layer exposed; I87.2 Venous insufficiency (chronic) (peripheral); I10 Essential (primary) hypertension; Z79.82 Long term (current) use of aspirin | CPT/HCPCS: 11042; A6452 ×2 ==

== ENCOUNTER 2018-12-29 08:00 | Outpatient (CLI) | payer MEDICARE, MEDICAID | END 2018-12-29 23:59 | disposition home health service (06) | LOC: WOU 08:00 | PROVIDERS: ATTEND Podiatrist Foot & Ankle Surgery | DX: I87.311 Chronic venous hypertension (idiopathic) with ulcer of right lower extremity (principal); L97.812 Non-pressure chronic ulcer of other part of right lower leg with fat layer exposed; I87.2 Venous insufficiency (chronic) (peripheral); I10 Essential (primary) hypertension; Z87.891 Personal history of nicotine dependence; Z79.82 Long term (current) use of aspirin; Z79.52 Long term (current) use of systemic steroids | CPT/HCPCS: 11042; A6207 ==

== ENCOUNTER 2019-01-19 09:10 | Outpatient (CLI) | payer MEDICARE, MEDICAID | END 2019-01-19 23:59 | disposition home health service (06) | LOC: WOU 09:10 | PROVIDERS: ATTEND Podiatrist Foot & Ankle Surgery | DX: I87.311 Chronic venous hypertension (idiopathic) with ulcer of right lower extremity (principal); L97.812 Non-pressure chronic ulcer of other part of right lower leg with fat layer exposed; I87.2 Venous insufficiency (chronic) (peripheral); Z79.82 Long term (current) use of aspirin; Z79.52 Long term (current) use of systemic steroids | CPT/HCPCS: 11042; A6207 ==

== ENCOUNTER 2019-02-12 08:00 | Outpatient (CLI) | payer MEDICARE, MEDICAID | END 2019-02-12 23:59 | disposition home health service (06) | LOC: WOU 08:00 | PROVIDERS: ATTEND Podiatrist Foot & Ankle Surgery | DX: I83.213 Varicose veins of right lower extremity with both ulcer of ankle and inflammation (principal); L97.312 Non-pressure chronic ulcer of right ankle with fat layer exposed; T86.821 Skin graft (allograft) (autograft) failure; I10 Essential (primary) hypertension; K21.9 Gastro-esophageal reflux disease without esophagitis; N40.0 Benign prostatic hyperplasia without lower urinary tract symptoms | CPT/HCPCS: 11042; A6207 ==

== ENCOUNTER 2019-02-26 08:10 | Outpatient (CLI) | payer MEDICARE, MEDICAID | END 2019-02-26 23:59 | disposition home health service (06) | LOC: WOU 08:10 | PROVIDERS: ATTEND Podiatrist Foot & Ankle Surgery | DX: I83.213 Varicose veins of right lower extremity with both ulcer of ankle and inflammation (principal); L97.312 Non-pressure chronic ulcer of right ankle with fat layer exposed; I83.811 Varicose veins of right lower extremity with pain; Z86.718 Personal history of other venous thrombosis and embolism | CPT/HCPCS: 11042; A6207 ==

== ENCOUNTER 2019-03-19 08:00 | Outpatient (CLI) | payer MEDICARE, MEDICAID | END 2019-03-19 23:59 | disposition home or self-care (01) | LOC: WOU 08:00 | PROVIDERS: ATTEND Podiatrist Foot & Ankle Surgery | DX: I83.018 Varicose veins of right lower extremity with ulcer other part of lower leg (principal); L97.312 Non-pressure chronic ulcer of right ankle with fat layer exposed; M79.661 Pain in right lower leg; I87.2 Venous insufficiency (chronic) (peripheral); I10 Essential (primary) hypertension | CPT/HCPCS: 11042; A6207 ==

== ENCOUNTER 2019-04-02 08:10 | Outpatient (CLI) | payer MEDICARE, MEDICAID | END 2019-04-02 23:59 | disposition home health service (06) | LOC: WOU 08:10 | PROVIDERS: ATTEND Podiatrist Foot & Ankle Surgery | DX: I83.213 Varicose veins of right lower extremity with both ulcer of ankle and inflammation (principal); L97.312 Non-pressure chronic ulcer of right ankle with fat layer exposed; M79.661 Pain in right lower leg; T85.61 Breakdown (mechanical) of other specified internal prosthetic devices, implants and grafts | CPT/HCPCS: 11042; A6207 ==

== ENCOUNTER 2019-04-16 08:45 | Outpatient (CLI) | payer MEDICARE, MEDICAID | END 2019-04-16 23:59 | disposition home health service (06) | LOC: WOU 08:45 | PROVIDERS: ATTEND Podiatrist Foot & Ankle Surgery | DX: I83.213 Varicose veins of right lower extremity with both ulcer of ankle and inflammation (principal); L97.312 Non-pressure chronic ulcer of right ankle with fat layer exposed; I83.811 Varicose veins of right lower extremity with pain; I10 Essential (primary) hypertension; Z86.718 Personal history of other venous thrombosis and embolism; Z79.899 Other long term (current) drug therapy; Z79.82 Long term (current) use of aspirin | CPT/HCPCS: 11042; A6207 ×2; A6210 ==

== ENCOUNTER 2019-05-04 10:00 | Outpatient (CLI) | payer MEDICARE, MEDICAID | END 2019-05-04 23:59 | disposition home health service (06) | LOC: WOU 10:00 | PROVIDERS: ATTEND Podiatrist Foot & Ankle Surgery | DX: I87.311 Chronic venous hypertension (idiopathic) with ulcer of right lower extremity (principal); L97.812 Non-pressure chronic ulcer of other part of right lower leg with fat layer exposed; I87.2 Venous insufficiency (chronic) (peripheral); T86.828 Other complications of skin graft (allograft) (autograft); I10 Essential (primary) hypertension; Z79.82 Long term (current) use of aspirin | CPT/HCPCS: 11043; A6207; A6210 ==

== ENCOUNTER 2019-05-21 10:20 | Outpatient (CLI) | payer MEDICARE, MEDICAID | END 2019-05-21 23:59 | disposition home health service (06) | LOC: WOU 10:20 | PROVIDERS: ATTEND Podiatrist Foot & Ankle Surgery | DX: I83.213 Varicose veins of right lower extremity with both ulcer of ankle and inflammation (principal); L97.312 Non-pressure chronic ulcer of right ankle with fat layer exposed; M79.661 Pain in right lower leg; I10 Essential (primary) hypertension; I82.5Z3 Chronic embolism and thrombosis of unspecified deep veins of distal lower extremity, bilateral; Z79.82 Long term (current) use of aspirin; Z79.899 Other long term (current) drug therapy | CPT/HCPCS: 11042; A6207; A6210 ==

== ENCOUNTER 2019-06-04 10:00 | Outpatient (CLI) | payer MEDICARE, MEDICAID | END 2019-06-04 23:59 | disposition home health service (06) | LOC: WOU 10:00 | PROVIDERS: ATTEND Podiatrist Foot & Ankle Surgery | DX: I87.311 Chronic venous hypertension (idiopathic) with ulcer of right lower extremity (principal); L97.812 Non-pressure chronic ulcer of other part of right lower leg with fat layer exposed; I87.2 Venous insufficiency (chronic) (peripheral); M79.661 Pain in right lower leg; T86.821 Skin graft (allograft) (autograft) failure; Z79.82 Long term (current) use of aspirin; Z79.52 Long term (current) use of systemic steroids; I10 Essential (primary) hypertension | CPT/HCPCS: 11042; A6207; A6210 ==

== ENCOUNTER 2019-06-25 09:00 | Outpatient (CLI) | payer MEDICARE, MEDICAID | END 2019-06-25 23:59 | disposition home health service (06) | LOC: WOU 09:00 | PROVIDERS: ATTEND Podiatrist Foot & Ankle Surgery | DX: I87.311 Chronic venous hypertension (idiopathic) with ulcer of right lower extremity (principal); L97.812 Non-pressure chronic ulcer of other part of right lower leg with fat layer exposed; I87.2 Venous insufficiency (chronic) (peripheral); T86.821 Skin graft (allograft) (autograft) failure; I10 Essential (primary) hypertension; Z79.82 Long term (current) use of aspirin | CPT/HCPCS: 29581; A6207; A6210 ==

== ENCOUNTER 2019-07-16 08:50 | Outpatient (CLI) | payer MEDICARE, MEDICAID | END 2019-07-16 23:59 | disposition home health service (06) | LOC: WOU 08:50 | PROVIDERS: ATTEND Podiatrist Foot & Ankle Surgery | DX: I87.2 Venous insufficiency (chronic) (peripheral) (principal); I10 Essential (primary) hypertension; Z79.82 Long term (current) use of aspirin | CPT/HCPCS: G0463 ==

== ENCOUNTER 2022-01-18 11:00 | Outpatient (CLI) | payer MEDICARE, MEDICAID ==
[2022-01-18] MEDS ORDERED: UREA 10% -AHA 4% CREAM 57 GM TUBE ONE (11:56)
== END 2022-01-18 23:59 | disposition home health service (06) ==
LOC: WOU 11:00
PROVIDERS: ATTEND Podiatrist Foot & Ankle Surgery
DX: I87.311 Chronic venous hypertension (idiopathic) with ulcer of right lower extremity (principal); L97.312 Non-pressure chronic ulcer of right ankle with fat layer exposed; I87.2 Venous insufficiency (chronic) (peripheral); M79.661 Pain in right lower leg; I10 Essential (primary) hypertension; Z79.82 Long term (current) use of aspirin; Z87.891 Personal history of nicotine dependence
CPT/HCPCS: 11042; A6452

== ENCOUNTER 2022-01-25 10:20 | Outpatient (CLI) | payer MEDICARE, MEDICAID ==
[~2022-01-25 10:20] MED LIST changes: +LIDOCAINE SOLN 4% 50 ML BOTTLE ONE
[2022-01-25] MEDS ORDERED: UREA 10% -AHA 4% CREAM 57 GM TUBE ONE (10:57)
== END 2022-01-25 23:59 | disposition home health service (06) ==
LOC: WOU 10:20
PROVIDERS: ATTEND Podiatrist Foot & Ankle Surgery
DX: I87.311 Chronic venous hypertension (idiopathic) with ulcer of right lower extremity (principal); L97.312 Non-pressure chronic ulcer of right ankle with fat layer exposed; I87.2 Venous insufficiency (chronic) (peripheral); M79.661 Pain in right lower leg; L60.3 Nail dystrophy; Z79.82 Long term (current) use of aspirin; I10 Essential (primary) hypertension
CPT/HCPCS: 11042; A6452

== ENCOUNTER 2022-02-05 10:20 | Outpatient (CLI) | payer MEDICARE, OTHER ==
[2022-02-05] MEDS ORDERED: UREA 10% -AHA 4% CREAM 57 GM TUBE ONE (10:35)
== END 2022-02-05 23:59 | disposition home health service (06) ==
LOC: WOU 10:20
PROVIDERS: ATTEND Podiatrist Foot & Ankle Surgery
DX: I87.311 Chronic venous hypertension (idiopathic) with ulcer of right lower extremity (principal); L97.312 Non-pressure chronic ulcer of right ankle with fat layer exposed; I87.2 Venous insufficiency (chronic) (peripheral); M79.661 Pain in right lower leg; L60.3 Nail dystrophy; I10 Essential (primary) hypertension; Z79.82 Long term (current) use of aspirin
CPT/HCPCS: 11042; A6452

== ENCOUNTER 2022-02-12 09:20 | Outpatient (CLI) | payer MEDICARE, MEDICAID ==
[~2022-02-12 09:20] MED LIST changes: -LIDOCAINE SOLN 4% 50 ML BOTTLE ONE
[2022-02-12] MEDS ORDERED: LIDOCAINE SOLN 4% 50 ML BOTTLE ONE (09:25)
[2022-02-12] MEDS ORDERED: BACI/NEOM/POLY B OINT PKT 1 UDPKT PACKET ONE (09:56)
== END 2022-02-12 23:59 | disposition home health service (06) ==
LOC: WOU 09:20
PROVIDERS: ATTEND Podiatrist Foot & Ankle Surgery
DX: I87.311 Chronic venous hypertension (idiopathic) with ulcer of right lower extremity (principal); L97.312 Non-pressure chronic ulcer of right ankle with fat layer exposed; S91.311A Laceration without foreign body, right foot, initial encounter; X58.XXXA Exposure to other specified factors, initial encounter; Y92.89 Other specified places as the place of occurrence of the external cause; M79.661 Pain in right lower leg; L60.3 Nail dystrophy; Z87.891 Personal history of nicotine dependence; I10 Essential (primary) hypertension
CPT/HCPCS: 11042; A6452

== ENCOUNTER 2022-02-19 09:29 | Outpatient (CLI) | payer MEDICARE, OTHER ==
[~2022-02-19 09:29] MED LIST changes: +LIDOCAINE SOLN 4% 50 ML BOTTLE ONE; +UREA 10% -AHA 4% CREAM 57 GM TUBE ONE
[2022-02-19] MEDS ORDERED: BACI/NEOM/POLY B OINT PKT 1 UDPKT PACKET ONE (09:51)
== END 2022-02-19 23:59 | disposition home health service (06) ==
LOC: WOU 09:29
PROVIDERS: ATTEND Podiatrist Foot & Ankle Surgery
DX: I87.311 Chronic venous hypertension (idiopathic) with ulcer of right lower extremity (principal); L97.312 Non-pressure chronic ulcer of right ankle with fat layer exposed; I87.2 Venous insufficiency (chronic) (peripheral); S91.311A Laceration without foreign body, right foot, initial encounter; X58.XXXA Exposure to other specified factors, initial encounter; Y92.89 Other specified places as the place of occurrence of the external cause; M79.661 Pain in right lower leg; L60.3 Nail dystrophy; Z79.82 Long term (current) use of aspirin
CPT/HCPCS: 11042; A6207

== ENCOUNTER 2022-02-26 09:00 | Outpatient (CLI) | payer MEDICARE, MEDICAID ==
[~2022-02-26 09:00] MED LIST changes: -LIDOCAINE SOLN 4% 50 ML BOTTLE ONE; -UREA 10% -AHA 4% CREAM 57 GM TUBE ONE
== END 2022-02-26 23:59 | disposition home health service (06) ==
LOC: WOU 09:00
PROVIDERS: ATTEND Podiatrist Foot & Ankle Surgery
DX: I87.311 Chronic venous hypertension (idiopathic) with ulcer of right lower extremity (principal); L97.312 Non-pressure chronic ulcer of right ankle with fat layer exposed; I87.2 Venous insufficiency (chronic) (peripheral); M79.661 Pain in right lower leg; L60.3 Nail dystrophy; Z79.82 Long term (current) use of aspirin
CPT/HCPCS: 11042; A6452; A6209